=== PATIENT | female | born 1945 | race Caucasian/White ===

== ENCOUNTER 2021-06-24 11:26 | Inpatient (IN) | payer MEDICARE, BC ==
[2021-06-24] MEDS ORDERED: Diltiazem 125 MG/25 ML ONE (11:41)
[2021-06-24 13:47] LABS: #Basophils 0.1 thou/uL (0.0-0.2); #Eosinphils 0.1 thou/uL (0.0-0.7); #Lymphocytes 1.9 thou/uL (1.20-3.40); #Monocytes 1.1 thou/uL (0.11-0.59); #Neutrophils 7.3 thou/uL (1.40-6.50); %Basophils 0.5 % (0.0-1.0); %Lymphocytes 17.8 % (21.0-51.0); %Monocytes 10.7 % (0.0-10.0); %Neutrophils 70.1 % (42.0-75.0); Hemoglobin 12.8 g/dL (12.0-16.0); Mean Corpuscular HGB CONC 33.5 g/dL (32.0-36.0); Mean Corpuscular Hemoglobin 34.5 pg (27.0-31.0); Mean Platelet Volume 8.5 fL (7.4-10.4); Platelet Count 314 thou/uL (130-400); RBC Distribution Width 12.2 % (11.5-14.5); White Blood Cell (WBC) Count 10.4 thou/uL (4.8-10.8)
[2021-06-24 14:00] LABS: Prothrombin Time 46.8 sec (12.0-14.7)
[2021-06-24 14:02] LABS: PTT 72.2 sec (22.9-36.1)
[2021-06-24 14:20] LABS: Albumin 3.3 g/dL (3.4-4.8)
[2021-06-24 14:21] LABS: Chloride 108 mmol/L (98-107); Potassium 4.1 mmol/L (3.5-5.1); Sodium 141 mmol/L (136-145)
[2021-06-24 14:22] LABS: Calcium 8.5 mg/dL (7.8-10.44); Glucose 105 mg/dL (83-110)
[2021-06-24 14:23] LABS: Globulin 2.7 g/dL (2.4-3.5)
[2021-06-24 14:24] LABS: Anion Gap 16 mmol/L (10-20); Bilirubin, Total 0.6 mg/dL (0.2-1.2); Carbon Dioxide 21 mmol/L (23-31)
[2021-06-24 14:25] LABS: Alkaline Phosphatase 49 U/L (40-110)
[2021-06-24 14:26] LABS: Calc. Creatinine Clearance 0 mL/min (70-130)
[2021-06-24 14:27] LABS: BUN (Urea Nitrogen) 16 mg/dL (9.8-20.1)
[2021-06-24 14:28] LABS: ALT (SGPT) 19 U/L (8-55); AST (SGOT) 18 U/L (5-34); Magnesium 1.7 mg/dL (1.6-2.6)
[2021-06-24 14:29] LABS: Lipase 27 U/L (8-78)
[2021-06-24] MEDS ORDERED: Diltiazem 125 MG in Sodium Chloride 0.9% 100 ML IVPB SCH (16:15)
[2021-06-24] MEDS ORDERED: Acetaminophen 325 MG TAB PO PRN (16:25)
[2021-06-24] MEDS ORDERED: Ondansetron ODT 4 MG TAB PO PRN (16:25)
[2021-06-24] MEDS ORDERED: Magnesium 2 GM/50 ML 2 GM in Premix Bag 1 BAG IVPB SCH (17:15)
[2021-06-24 17:20] VITALS: BMI 25.3
[2021-06-24 18:58] LABS: Troponin I Less than 0.010 ng/mL (< 0.028)
[2021-06-24 21:59] LABS: Troponin I 0.018 ng/mL (< 0.028)
[2021-06-25] MEDS ORDERED: Diltiazem 125 MG in Sodium Chloride 0.9% 100 ML IVPB SCH ×2 (01:00→10:15)
[2021-06-25 04:31] LABS: #Eosinphils 0.1 thou/uL (0.0-0.7); #Lymphocytes 1.5 thou/uL (1.20-3.40); #Monocytes 1.3 thou/uL (0.11-0.59); #Neutrophils 7.3 thou/uL (1.40-6.50); %Basophils 0.4 % (0.0-1.0); %Eosinophils 1.3 % (0.0-10.0); %Lymphocytes 14.5 % (21.0-51.0); %Monocytes 12.7 % (0.0-10.0); %Neutrophils 71.1 % (42.0-75.0); Hemoglobin 13.3 g/dL (12.0-16.0); Mean Corpuscular HGB CONC 33.2 g/dL (32.0-36.0); Mean Corpuscular Hemoglobin 34.1 pg (27.0-31.0); Mean Platelet Volume 8.9 fL (7.4-10.4); Platelet Count 344 thou/uL (130-400); RBC Distribution Width 12.2 % (11.5-14.5); White Blood Cell (WBC) Count 10.2 thou/uL (4.8-10.8)
[2021-06-25 04:40] LABS: Prothrombin Time 39.3 sec (12.0-14.7)
[2021-06-25 04:41] LABS: PTT 83.1 sec (22.9-36.1)
[2021-06-25 04:51] LABS: Anion Gap 12 mmol/L (10-20); BUN (Urea Nitrogen) 14 mg/dL (9.8-20.1); Calc. Creatinine Clearance 80 mL/min (70-130); Calcium 8.9 mg/dL (7.8-10.44); Carbon Dioxide 25 mmol/L (23-31); Chloride 108 mmol/L (98-107); Glucose 152 mg/dL (83-110); Sodium 141 mmol/L (136-145)
[2021-06-25] MEDS ORDERED: Dextrose 50% Abboject 50 ML SYRINGE SLOW IVP PRN (10:05)
[2021-06-25] MEDS ORDERED: Dextrose 5% in Water 1,000 ML IV PRN (10:05)
[2021-06-25] MEDS ORDERED: Digoxin 0.5 MG/2 ML AMP SLOW IVP SCH (10:15)
[2021-06-25] MEDS ORDERED: Acetaminophen 325 MG TAB PO PRN (11:54)
[2021-06-25 19:19] LABS: SARS-CoV-2 PCR by NAA Not Detected (NotDetected)
[2021-06-25] MEDS: Amiodarone 450 MG in Dextrose 5% in Water 250 ML IVPB SCH (20:28)
[2021-06-25] MEDS: Metoprolol Tartrate 25 MG TAB PO SCH (20:29)
[2021-06-26] MEDS: Amiodarone 450 MG in Dextrose 5% in Water 250 ML IVPB SCH ×2 (05:24→19:57)
[2021-06-26 05:29] LABS: INR-International Normal Ratio 2.8; Prothrombin Time 29.5 sec (12.0-14.7)
[2021-06-26 05:37] LABS: Anion Gap 13 mmol/L (10-20); BUN (Urea Nitrogen) 12 mg/dL (9.8-20.1); Calc. Creatinine Clearance 81 mL/min (70-130); Calcium 8.9 mg/dL (7.8-10.44); Carbon Dioxide 21 mmol/L (23-31); Chloride 105 mmol/L (98-107); Glucose 237 mg/dL (83-110); Magnesium 1.5 mg/dL (1.6-2.6); Potassium 3.8 mmol/L (3.5-5.1); Sodium 135 mmol/L (136-145)
[2021-06-26 05:51] LABS: #Eosinphils 0.1 thou/uL (0.0-0.7); #Lymphocytes 1.6 thou/uL (1.20-3.40); #Monocytes 1.6 thou/uL (0.11-0.59); #Neutrophils 8.9 thou/uL (1.40-6.50); %Basophils 0.4 % (0.0-1.0); %Eosinophils 0.6 % (0.0-10.0); %Monocytes 12.8 % (0.0-10.0); %Neutrophils 73.1 % (42.0-75.0); Hemoglobin 12.8 g/dL (12.0-16.0); Mean Corpuscular HGB CONC 32.9 g/dL (32.0-36.0); Mean Corpuscular Hemoglobin 33.3 pg (27.0-31.0); Mean Platelet Volume 9.1 fL (7.4-10.4); Platelet Count 355 thou/uL (130-400); RBC Distribution Width 12.1 % (11.5-14.5); Red Blood Cell (RBC) Count 3.86 mill/uL (4.20-5.40); White Blood Cell (WBC) Count 12.2 thou/uL (4.8-10.8)
[2021-06-26] MEDS: HumaLOG 300 UNITS/3 ML VIAL SC PRN ×3 (06:05→17:01)
[2021-06-26] MEDS: HYDROcodone/Acetaminophen 5/325 mg Tablet PO PRN ×2 (08:49→19:57)
[2021-06-26] MEDS ORDERED: HYDROcodone/Acetaminophen 5/325 mg Tablet PO SCH (09:45)
[2021-06-26] MEDS ORDERED: Magnesium Sulfate 4 GM in Sodium Chloride 0.9% 250 ML 250 ML IVPB SCH (09:45)
[2021-06-26] MEDS: glipiZIDE 5 MG TAB PO SCH (10:00)
[2021-06-26] MEDS: Digoxin 0.125 MG TAB PO SCH (10:01)
[2021-06-26] MEDS: Lisinopril 10 MG TAB PO SCH (10:01)
[2021-06-26] MEDS: Atorvastatin Calcium 10 MG TAB PO SCH (10:01)
[2021-06-26] MEDS: Metoprolol Tartrate 25 MG TAB PO SCH ×2 (10:02→19:57)
[2021-06-26] MEDS: Lidocaine 5% Patch TD SCH (10:14)
[2021-06-26] MEDS: Clindamycin/D5W 900 MG in Premix Bag 1 BAG IVPB SCH ×2 (13:53→21:47)
[2021-06-26] MEDS ORDERED: Warfarin Sodium 2 MG TAB PO SCH (17:00)
[2021-06-26] MEDS: Transdermal Patch Removal TOP SCH (19:58)
[2021-06-27 04:39] LABS: #Eosinphils 0.3 thou/uL (0.0-0.7); #Lymphocytes 1.3 thou/uL (1.20-3.40); #Monocytes 1.3 thou/uL (0.11-0.59); #Neutrophils 7.3 thou/uL (1.40-6.50); %Basophils 0.1 % (0.0-1.0); %Eosinophils 3.3 % (0.0-10.0); %Lymphocytes 12.9 % (21.0-51.0); %Neutrophils 70.7 % (42.0-75.0); Hemoglobin 13.1 g/dL (12.0-16.0); Mean Corpuscular HGB CONC 32.6 g/dL (32.0-36.0); Mean Corpuscular Hemoglobin 33.3 pg (27.0-31.0); Mean Platelet Volume 8.6 fL (7.4-10.4); Platelet Count 325 thou/uL (130-400); RBC Distribution Width 12.1 % (11.5-14.5); Red Blood Cell (RBC) Count 3.94 mill/uL (4.20-5.40); White Blood Cell (WBC) Count 10.3 thou/uL (4.8-10.8)
[2021-06-27 04:48] LABS: INR-International Normal Ratio 2.8; Prothrombin Time 29.4 sec (12.0-14.7)
[2021-06-27 04:58] LABS: Anion Gap 13 mmol/L (10-20); BUN (Urea Nitrogen) 15 mg/dL (9.8-20.1); Calc. Creatinine Clearance 83 mL/min (70-130); Calcium 8.5 mg/dL (7.8-10.44); Carbon Dioxide 24 mmol/L (23-31); Chloride 103 mmol/L (98-107); Glucose 199 mg/dL (83-110); Magnesium 1.8 mg/dL (1.6-2.6); Potassium 3.9 mmol/L (3.5-5.1); Sodium 136 mmol/L (136-145)
[2021-06-27] MEDS: Clindamycin/D5W 900 MG in Premix Bag 1 BAG IVPB SCH ×3 (05:32→22:19)
[2021-06-27] MEDS: glipiZIDE 5 MG TAB PO SCH (08:47)
[2021-06-27] MEDS: Atorvastatin Calcium 10 MG TAB PO SCH (08:48)
[2021-06-27] MEDS: Digoxin 0.125 MG TAB PO SCH (08:48)
[2021-06-27] MEDS: Lisinopril 10 MG TAB PO SCH (08:48)
[2021-06-27] MEDS: HYDROcodone/Acetaminophen 5/325 mg Tablet PO PRN ×2 (08:48→20:32)
[2021-06-27] MEDS: Metoprolol Tartrate 25 MG TAB PO SCH ×2 (08:48→20:32)
[2021-06-27] MEDS: Lidocaine 5% Patch TD SCH (08:49)
[2021-06-27] MEDS ORDERED: PROPOFOL 0 ML ONE (10:56)
[2021-06-27] MEDS ORDERED: PROPOFOL 20 ML ONE (11:27)
[2021-06-27] MEDS ORDERED: Warfarin Sodium 2 MG TAB PO SCH (17:00)
[2021-06-27] MEDS: Dronedarone HCl 400 MG TAB PO SCH (20:32)
[2021-06-27] MEDS: Transdermal Patch Removal TOP SCH (20:33)
[2021-06-28 04:42] LABS: #Basophils 0.1 thou/uL (0.0-0.2); #Eosinphils 0.4 thou/uL (0.0-0.7); #Lymphocytes 1.6 thou/uL (1.20-3.40); #Monocytes 1.3 thou/uL (0.11-0.59); #Neutrophils 6.1 thou/uL (1.40-6.50); %Basophils 0.7 % (0.0-1.0); %Eosinophils 3.9 % (0.0-10.0); %Lymphocytes 16.6 % (21.0-51.0); %Monocytes 13.3 % (0.0-10.0); %Neutrophils 65.5 % (42.0-75.0); Hemoglobin 12.5 g/dL (12.0-16.0); Mean Corpuscular HGB CONC 33.8 g/dL (32.0-36.0); Mean Corpuscular Hemoglobin 34.6 pg (27.0-31.0); Mean Platelet Volume 8.7 fL (7.4-10.4); Platelet Count 335 thou/uL (130-400); Red Blood Cell (RBC) Count 3.61 mill/uL (4.20-5.40); White Blood Cell (WBC) Count 9.4 thou/uL (4.8-10.8)
[2021-06-28 04:52] LABS: INR-International Normal Ratio 2.8; Prothrombin Time 29.6 sec (12.0-14.7)
[2021-06-28 05:08] LABS: Anion Gap 11 mmol/L (10-20); BUN (Urea Nitrogen) 13 mg/dL (9.8-20.1); Calc. Creatinine Clearance 72 mL/min (70-130); Calcium 8.4 mg/dL (7.8-10.44); Carbon Dioxide 26 mmol/L (23-31); Chloride 104 mmol/L (98-107); Glucose 140 mg/dL (83-110); Potassium 4.3 mmol/L (3.5-5.1); Sodium 137 mmol/L (136-145)
[2021-06-28] MEDS: HYDROcodone/Acetaminophen 5/325 mg Tablet PO PRN (05:28)
[2021-06-28] MEDS: Clindamycin/D5W 900 MG in Premix Bag 1 BAG IVPB SCH ×3 (05:29→21:51)
[2021-06-28] MEDS: Dronedarone HCl 400 MG TAB PO SCH ×2 (09:19→21:50)
[2021-06-28] MEDS: Lisinopril 10 MG TAB PO SCH (09:19)
[2021-06-28] MEDS: glipiZIDE 5 MG TAB PO SCH (09:20)
[2021-06-28] MEDS: Atorvastatin Calcium 10 MG TAB PO SCH (09:20)
[2021-06-28] MEDS: Metoprolol Tartrate 25 MG TAB PO SCH ×2 (09:21→21:50)
[2021-06-28] MEDS: Lidocaine 5% Patch TD SCH (09:21)
[2021-06-28] MEDS ORDERED: Warfarin Sodium 2 MG TAB PO SCH (17:00)
[2021-06-28] MEDS: HumaLOG 300 UNITS/3 ML VIAL SC PRN (17:25)
[2021-06-28] MEDS: Transdermal Patch Removal TOP SCH (22:44)
[2021-06-29] MEDS: HYDROcodone/Acetaminophen 5/325 mg Tablet PO PRN (03:59)
[2021-06-29] MEDS: Clindamycin/D5W 900 MG in Premix Bag 1 BAG IVPB SCH ×3 (05:23→21:51)
[2021-06-29 05:34] LABS: INR-International Normal Ratio 2.7; Prothrombin Time 28.7 sec (12.0-14.7)
[2021-06-29] MEDS: Atorvastatin Calcium 10 MG TAB PO SCH (08:53)
[2021-06-29] MEDS: glipiZIDE 5 MG TAB PO SCH (08:53)
[2021-06-29] MEDS: Dronedarone HCl 400 MG TAB PO SCH ×2 (08:55→20:14)
[2021-06-29] MEDS: Lidocaine 5% Patch TD SCH (08:55)
[2021-06-29] MEDS: Lisinopril 10 MG TAB PO SCH (08:55)
[2021-06-29] MEDS: Metoprolol Tartrate 25 MG TAB PO SCH ×2 (08:55→20:14)
[2021-06-29] MEDS: HumaLOG 300 UNITS/3 ML VIAL SC PRN ×2 (11:48→21:51)
[2021-06-29] MEDS ORDERED: Warfarin Sodium 5 MG TAB PO SCH (17:00)
[2021-06-29] MEDS: Transdermal Patch Removal TOP SCH (21:52)
[2021-06-30] MEDS: Clindamycin/D5W 900 MG in Premix Bag 1 BAG IVPB SCH (05:12)
[2021-06-30] MEDS: HumaLOG 300 UNITS/3 ML VIAL SC PRN (06:16)
[2021-06-30 08:34] LABS: INR-International Normal Ratio 2.6
[2021-06-30] MEDS: Dronedarone HCl 400 MG TAB PO SCH (08:42)
[2021-06-30] MEDS: Atorvastatin Calcium 10 MG TAB PO SCH (08:42)
[2021-06-30] MEDS: Lisinopril 10 MG TAB PO SCH (08:42)
[2021-06-30] MEDS: Metoprolol Tartrate 25 MG TAB PO SCH (08:43)
[2021-06-30] MEDS: glipiZIDE 5 MG TAB PO SCH (08:43)
[2021-06-30] MEDS: Lidocaine 5% Patch TD SCH (08:48)
[2021-06-30] MEDS ORDERED: Polyethylene Glycol 3350 17 GM Packet PO SCH (09:00)
[2021-06-30 11:40] VITALS: BP 115/57; TEMP 98.1
== END 2021-06-30 11:30 | disposition home health service (06) | DRG 309 ==
LOC: ERS 11:26 → 2NO 15:07
PROVIDERS: ADMIT Family Medicine; ATTEND Family Medicine
PROC: 5A2204Z Restoration of Cardiac Rhythm, Single (ICD-10-PCS; principal; 2021-06-27)
DX: I48.0 Paroxysmal atrial fibrillation (principal); L03.114 Cellulitis of left upper limb; T80.1XXA Vascular complications following infusion, transfusion and therapeutic injection, initial encounter; I10 Essential (primary) hypertension; E78.5 Hyperlipidemia, unspecified; M19.90 Unspecified osteoarthritis, unspecified site; R79.1 Abnormal coagulation profile; E11.621 Type 2 diabetes mellitus with foot ulcer; L97.529 Non-pressure chronic ulcer of other part of left foot with unspecified severity; I48.92 Unspecified atrial flutter; Z20.822 Contact with and (suspected) exposure to COVID-19; I80.8 Phlebitis and thrombophlebitis of other sites; Z90.49 Acquired absence of other specified parts of digestive tract; Z95.2 Presence of prosthetic heart valve; Z86.73 Personal history of transient ischemic attack (TIA), and cerebral infarction without residual deficits; Z98.890 Other specified postprocedural states; Z88.1 Allergy status to other antibiotic agents; Z91.040 Latex allergy status
CPT/HCPCS: 36415; 36416; 71045; 80048; 80053; 83690; 83735; 83880; 84443; 84484; 85025; 85610; 85730; 92960; 93005; 93010; 96365; 96366; 96376; J0282; J1160; J1815; J2704; J3475; J3490; J7050; J7070; U0003; U0005

== ENCOUNTER 2021-08-05 15:02 | Outpatient (CLI) | payer MEDICARE, BC ==
[2021-08-05 17:20] LABS: INR-International Normal Ratio 1.8; PTT 32.5 sec (22.0-33.0); Prothrombin Time 19.2 sec (9.5-12.1)
[2021-08-05 17:23] LABS: Anion Gap 14 mmol/L (10-20); BUN (Urea Nitrogen) 16 mg/dL (9.8-20.1); Calc. Creatinine Clearance 0 mL/min (70-130); Carbon Dioxide 23 mmol/L (23-31); Chloride 109 mmol/L (98-107); Glucose 74 mg/dL (83-110); Potassium 4.2 mmol/L (3.5-5.1); Sodium 142 mmol/L (136-145)
[2021-08-06 00:49] LABS: SARS-CoV-2 PCR by NAA Not Detected (NotDetected)
== END 2021-08-05 15:03 | disposition home or self-care (01) ==
LOC: LABBT 15:02
PROVIDERS: ATTEND Internal Medicine Cardiovascular Disease
DX: Z01.812 Encounter for preprocedural laboratory examination (principal); Z20.822 Contact with and (suspected) exposure to COVID-19
CPT/HCPCS: 80048; 85610; 85730; U0003; U0005

== ENCOUNTER → 2021-08-09 | Day surgery (SDC) | payer MEDICARE, BC ==
[2021-08-08 15:12] VITALS: BMI 24.3
== END ==
LOC: CCL 12:20
PROVIDERS: ATTEND Internal Medicine Cardiovascular Disease
DX: I48.91 Unspecified atrial fibrillation (principal); Z53.8 Procedure and treatment not carried out for other reasons; Z79.01 Long term (current) use of anticoagulants; Z79.82 Long term (current) use of aspirin; Z79.84 Long term (current) use of oral hypoglycemic drugs; Z79.899 Other long term (current) drug therapy; Z91.018 Allergy to other foods; Z91.040 Latex allergy status
CPT/HCPCS: 93005; 93010

== ENCOUNTER 2022-04-18 13:38 | Outpatient (CLI) | payer MEDICARE, BC | END 2022-04-18 13:39 | disposition home or self-care (01) | LOC: BICRAD 13:38 | PROVIDERS: ATTEND Neurological Surgery | DX: M54.16 Radiculopathy, lumbar region (principal); M41.86 Other forms of scoliosis, lumbar region; Z98.890 Other specified postprocedural states | CPT/HCPCS: 72110 ==

== ENCOUNTER 2023-01-31 16:17 | Inpatient (IN) | payer MEDICARE, BC ==
[2023-01-31] MEDS ORDERED: Morphine 2 MG/ML VIAL ONE (17:18)
[2023-01-31 20:50] LABS: #Basophils 0.1 thou/uL (0.0-0.2); #Lymphocytes 1.7 thou/uL (1.20-3.40); #Monocytes 1.3 thou/uL (0.11-0.59); #Neutrophils 9.3 thou/uL (1.40-6.50); %Basophils 0.5 % (0.0-1.0); %Eosinophils 0.2 % (0.0-10.0); %Lymphocytes 13.6 % (21.0-51.0); %Monocytes 10.2 % (0.0-10.0); %Neutrophils 75.4 % (42.0-75.0); Hemoglobin 11.2 g/dL (12.0-16.0); Mean Corpuscular HGB CONC 33.4 g/dL (32.0-36.0); Mean Corpuscular Hemoglobin 34.7 pg (27.0-31.0); Mean Platelet Volume 8.7 fL (7.4-10.4); Platelet Count 256 10x3/uL (130-400); RBC Distribution Width 13.7 % (11.5-14.5); Red Blood Cell (RBC) Count 3.24 mill/uL (4.20-5.40); White Blood Cell (WBC) Count 12.3 10x3/uL (4.8-10.8)
[2023-01-31] MEDS ORDERED: Acetaminophen 325 MG TAB PO PRN (23:38)
[2023-01-31] MEDS ORDERED: Ondansetron ODT 4 MG TAB PO PRN (23:38)
[2023-01-31] MEDS ORDERED: Ondansetron PF 4 MG/2 ML Vial IVP PRN (23:38)
[2023-01-31] MEDS ORDERED: Acetaminophen 650 MG Suppository PR PRN (23:38)
[2023-01-31] MEDS ORDERED: Dextrose 5% in Water 1,000 ML IV PRN (23:40)
[2023-01-31] MEDS ORDERED: Dextrose 50% Abboject 50 ML SYRINGE SLOW IVP PRN (23:40)
[2023-02-01] MEDS ORDERED: Morphine 4 MG/ML VIAL ONE ×2 (03:21→09:53)
[2023-02-01] MEDS ORDERED: Ondansetron PF 4 MG/2 ML Vial ONE (03:21)
[2023-02-01] MEDS: Morphine 4 MG/ML VIAL SLOW IVP PRN ×3 (03:26→17:58)
[2023-02-01 05:09] LABS: #Eosinphils 0.1 thou/uL (0.0-0.7); #Lymphocytes 1.8 thou/uL (1.20-3.40); #Monocytes 1.6 thou/uL (0.11-0.59); #Neutrophils 9.3 thou/uL (1.40-6.50); %Eosinophils 0.5 % (0.0-10.0); %Lymphocytes 13.8 % (21.0-51.0); %Monocytes 12.3 % (0.0-10.0); %Neutrophils 73.4 % (42.0-75.0); Hemoglobin 10.9 g/dL (12.0-16.0); Mean Corpuscular HGB CONC 31.6 g/dL (32.0-36.0); Mean Corpuscular Hemoglobin 33.2 pg (27.0-31.0); Mean Platelet Volume 9.1 fL (7.4-10.4); Platelet Count 267 10x3/uL (130-400); RBC Distribution Width 13.7 % (11.5-14.5); Red Blood Cell (RBC) Count 3.27 mill/uL (4.20-5.40); White Blood Cell (WBC) Count 12.7 10x3/uL (4.8-10.8)
[2023-02-01 05:26] LABS: Anion Gap 12 mmol/L (10-20); BUN (Urea Nitrogen) 14 mg/dL (9.8-20.1); Calc. Creatinine Clearance 86 mL/min (70-130); Calcium 9.2 mg/dL (7.8-10.44); Carbon Dioxide 24 mmol/L (23-31); Chloride 106 mmol/L (98-107); Estimated GFR 91; Glucose 134 mg/dL (83-110); Potassium 3.8 mmol/L (3.5-5.1); Sodium 138 mmol/L (136-145)
[2023-02-01] MEDS ORDERED: Iopamidol-370 76% 500 ML MDV (1 ML CHARGE) ONE (09:26)
[2023-02-01] MEDS ORDERED: Lactated Ringer's 1,000 ML IV SCH (10:30)
[2023-02-01 13:05] LABS: Hemoglobin 10.9 g/dL (12.0-16.0); Mean Corpuscular HGB CONC 33.4 g/dL (32.0-36.0); Mean Corpuscular Hemoglobin 34.9 pg (27.0-31.0); Platelet Count 249 10x3/uL (130-400); RBC Distribution Width 13.7 % (11.5-14.5); Red Blood Cell (RBC) Count 3.12 mill/uL (4.20-5.40); White Blood Cell (WBC) Count 13.9 10x3/uL (4.8-10.8)
[2023-02-01 13:22] LABS: INR-International Normal Ratio 1.1; Prothrombin Time 15.1 sec (12.0-14.7)
[2023-02-01 18:16] LABS: Bacteria/HPF None Seen HPF (None Seen); Bilirubin Negative (Negative); Blood, Urine Negative (Negative); CAUTI Indications for Culture Pelvic or flank pain; Clarity Clear (Clear); Glucose, Urine (Dipstick) Normal (Negative); Ketone, Urine Negative (Negative); Leukocyte Negative Leu/uL (Negative); Nitrite Negative (Negative); Protein, Urine (Dipstick) 30 mg/dL (Neg-Trace); RBC/HPF None Seen HPF (0-3); Squamous Epithelial 0-3 HPF (0-3); WBC/HPF 0-3 HPF (0-3)
[2023-02-01 18:20] LABS: Specific Gravity, Urine Greater than 1.060 (1.002-1.036)
[2023-02-01 18:22] LABS: Urine Culture Reflex No No
[2023-02-01] MEDS ORDERED: Morphine 4 MG/ML VIAL SLOW IVP PRN (18:23)
[2023-02-01] MEDS ORDERED: Dronedarone HCl 400 MG TAB PO SCH (18:30)
[2023-02-01] MEDS: Gabapentin 100 MG CAP PO SCH (19:40)
[2023-02-02 05:50] LABS: Mean Corpuscular HGB CONC 33.7 g/dL (32.0-36.0); Mean Corpuscular Hemoglobin 35.1 pg (27.0-31.0); Mean Platelet Volume 9.9 fL (7.4-10.4); Platelet Count 221 10x3/uL (130-400); RBC Distribution Width 13.7 % (11.5-14.5); Red Blood Cell (RBC) Count 2.85 mill/uL (4.20-5.40); White Blood Cell (WBC) Count 11.1 10x3/uL (4.8-10.8)
[2023-02-02 05:55] LABS: INR-International Normal Ratio 1.2; PTT 36.3 sec (22.9-36.1); Prothrombin Time 15.2 sec (12.0-14.7)
[2023-02-02 06:02] LABS: ALT (SGPT) 20 U/L (8-55); AST (SGOT) 36 U/L (5-34); Albumin 2.9 g/dL (3.4-4.8); Alkaline Phosphatase 39 U/L (40-110); Anion Gap 13 mmol/L (10-20); BUN (Urea Nitrogen) 14 mg/dL (9.8-20.1); Bilirubin, Direct 0.6 mg/dL (0.1-0.3); Bilirubin, Total 1.2 mg/dL (0.2-1.2); Calc. Creatinine Clearance 0 mL/min (70-130); Calcium 8.7 mg/dL (7.8-10.44); Carbon Dioxide 24 mmol/L (23-31); Chloride 107 mmol/L (98-107); Estimated GFR 92; Glucose 110 mg/dL (83-110); Magnesium 1.6 mg/dL (1.6-2.6); Potassium 3.7 mmol/L (3.5-5.1); Protein, Total 5.9 g/dL (5.8-8.1); Sodium 140 mmol/L (136-145)
[2023-02-02 06:19] LABS: Hemoglobin A1c 4.8 % (4.0-6.0)
[2023-02-02 06:38] LABS: Band 4 % (5-11); Lymphocytes 17 % (21-51); MDiff Complete? YES; Monocytes 10 % (0-10); Neutrophil 69 % (42-75)
[2023-02-02] MEDS ORDERED: Lactated Ringer's 1,000 ML IV SCH (08:00)
[2023-02-02] MEDS: Lidocaine 4% Patch TD SCH (08:24)
[2023-02-02] MEDS: Gabapentin 100 MG CAP PO SCH (08:28)
[2023-02-02] MEDS: Ezetimibe 10 MG TAB PO SCH (08:29)
[2023-02-02] MEDS: Dronedarone HCl 400 MG TAB PO SCH ×2 (08:29→17:58)
[2023-02-02] MEDS ORDERED: Heparin 25,000 units/D5W 500 ML IVPB SCH (08:45)
[2023-02-02] MEDS ORDERED: Heparin 10,000 UNITS/ 10 ML VIAL SLOW IVP SCH (08:45)
[2023-02-02] MEDS ORDERED: Lisinopril 10 MG TAB PO SCH (09:00)
[2023-02-02] MEDS ORDERED: Furosemide 40 MG TAB PO SCH (09:00)
[2023-02-02 09:29] LABS: Hemoglobin 9.9 g/dL (12.0-16.0); Platelet Count 222 10x3/uL (130-400)
[2023-02-02] MEDS: Metoprolol Tartrate 5 MG/5 ML VIAL IVP SCH (10:06)
[2023-02-02] MEDS: Aspirin 81 mg Enteric Coated Tablet PO SCH (10:06)
[2023-02-02] MEDS: Metoprolol Tartrate 25 MG TAB PO SCH ×2 (10:07→21:11)
[2023-02-02] MEDS ORDERED: Gabapentin 100 MG CAP PO SCH (12:07)
[2023-02-02] MEDS ORDERED: Gabapentin 300 MG CAP PO SCH (12:15)
[2023-02-02] MEDS ORDERED: Ketorolac Tromethamine 30 MG/ML VIAL IVP PRN (13:25)
[2023-02-02] MEDS ORDERED: HYDROmorphone 2 MG TAB PO PRN (13:26)
[2023-02-02] MEDS ORDERED: Sodium Chloride 0.9% 500 ML IV SCH ×2 (13:30→17:15)
[2023-02-02 14:53] LABS: Hemoglobin 10.4 g/dL (12.0-16.0); Mean Corpuscular HGB CONC 34.3 g/dL (32.0-36.0); Mean Corpuscular Hemoglobin 35.7 pg (27.0-31.0); Mean Platelet Volume 9.4 fL (7.4-10.4); Platelet Count 228 10x3/uL (130-400); RBC Distribution Width 13.8 % (11.5-14.5); Red Blood Cell (RBC) Count 2.91 mill/uL (4.20-5.40); White Blood Cell (WBC) Count 10.8 10x3/uL (4.8-10.8)
[2023-02-02] MEDS: Acetaminophen 325 MG TAB PO SCH ×2 (15:10→17:57)
[2023-02-02] MEDS: Gabapentin 300 MG CAP PO SCH ×2 (15:11→21:11)
[2023-02-02] MEDS: Sodium Chloride 0.9% 1,000 ML IV SCH (15:13)
[2023-02-02 16:26] LABS: PTT 166.4 sec (22.9-36.1)
[2023-02-02] MEDS ORDERED: Atorvastatin Calcium 40 MG TAB PO SCH (21:00)
[2023-02-02] MEDS: Transdermal Patch Removal TOP SCH (21:12)
[2023-02-03] MEDS: Acetaminophen 325 MG TAB PO SCH ×5 (00:17→23:28)
[2023-02-03] MEDS: Sodium Chloride 0.9% 1,000 ML IV SCH ×4 (03:26→23:29)
[2023-02-03 04:59] LABS: Hemoglobin 9.3 g/dL (12.0-16.0); Mean Corpuscular HGB CONC 33.9 g/dL (32.0-36.0); Mean Corpuscular Hemoglobin 35.7 pg (27.0-31.0); Platelet Count 224 10x3/uL (130-400); RBC Distribution Width 13.9 % (11.5-14.5); Red Blood Cell (RBC) Count 2.59 mill/uL (4.20-5.40); White Blood Cell (WBC) Count 8.8 10x3/uL (4.8-10.8)
[2023-02-03 05:01] LABS: INR-International Normal Ratio 1.1; PTT 37.4 sec (22.9-36.1)
[2023-02-03 05:19] LABS: Anion Gap 10 mmol/L (10-20); BUN (Urea Nitrogen) 15 mg/dL (9.8-20.1); CK (CPK) 246 U/L (29-168); Calc. Creatinine Clearance 79 mL/min (70-130); Carbon Dioxide 25 mmol/L (23-31); Chloride 109 mmol/L (98-107); Estimated GFR 90; Glucose 135 mg/dL (83-110); Magnesium 1.6 mg/dL (1.6-2.6); Potassium 3.7 mmol/L (3.5-5.1); Sodium 140 mmol/L (136-145)
[2023-02-03 05:36] LABS: Crenated RBC MODERATE= 6-15 cells (100X) (None Seen); Eosinophils 4 % (0-10); Lymphocytes 12 % (21-51); MDiff Complete? YES; Macrocytosis SLIGHT = 6-15 cells (100X) (0-5/hpf); Monocytes 10 % (0-10); Neutrophil 74 % (42-75); Platelet Morphology Comment Appears Adequate; Polychromasia SLIGHT = 2-3 cells (100X) (0-2/hpf); Schistocytes SLIGHT = 2-5 cells (100X) (0-1/hpf)
[2023-02-03] MEDS ORDERED: Electrolyte Replacement Protocol 1 EACH FS SCH (08:00)
[2023-02-03] MEDS ORDERED: Potassium Chloride 20 MEQ TAB PO SCH (08:00)
[2023-02-03] MEDS ORDERED: Magnesium Sulfate In Water 4 GM in Premix Bag 1 BAG IVPB SCH (08:00)
[2023-02-03] MEDS ORDERED: Atorvastatin Calcium 10 MG TAB PO SCH (09:00)
[2023-02-03] MEDS: Lidocaine 4% Patch TD SCH (09:29)
[2023-02-03] MEDS: Aspirin 81 mg Enteric Coated Tablet PO SCH (09:30)
[2023-02-03] MEDS: Dronedarone HCl 400 MG TAB PO SCH ×2 (09:30→16:21)
[2023-02-03] MEDS: Gabapentin 300 MG CAP PO SCH ×3 (09:30→21:19)
[2023-02-03] MEDS: Atorvastatin Calcium 10 MG TAB PO SCH (09:30)
[2023-02-03] MEDS: Ezetimibe 10 MG TAB PO SCH (09:31)
[2023-02-03 14:32] LABS: Hemoglobin 9.2 g/dL (12.0-16.0); Mean Corpuscular HGB CONC 33.9 g/dL (32.0-36.0); Mean Corpuscular Hemoglobin 35.7 pg (27.0-31.0); Mean Platelet Volume 8.9 fL (7.4-10.4); Platelet Count 229 10x3/uL (130-400); Red Blood Cell (RBC) Count 2.58 mill/uL (4.20-5.40)
[2023-02-03] MEDS: Metoprolol Tartrate 25 MG TAB PO SCH (21:19)
[2023-02-03] MEDS: Transdermal Patch Removal TOP SCH (21:21)
[2023-02-04] MEDS: Sodium Chloride 0.9% 1,000 ML IV SCH ×3 (04:50→21:11)
[2023-02-04 05:09] LABS: #Eosinphils 0.5 thou/uL (0.0-0.7); #Lymphocytes 1.5 thou/uL (1.20-3.40); #Monocytes 1.1 thou/uL (0.11-0.59); %Basophils 0.4 % (0.0-1.0); %Eosinophils 5.1 % (0.0-10.0); %Lymphocytes 16.1 % (21.0-51.0); %Monocytes 12.1 % (0.0-10.0); %Neutrophils 66.3 % (42.0-75.0); Hemoglobin 9.6 g/dL (12.0-16.0); Mean Corpuscular HGB CONC 33.4 g/dL (32.0-36.0); Mean Platelet Volume 8.8 fL (7.4-10.4); Platelet Count 251 10x3/uL (130-400); RBC Distribution Width 14.1 % (11.5-14.5); Red Blood Cell (RBC) Count 2.76 mill/uL (4.20-5.40)
[2023-02-04 05:14] LABS: INR-International Normal Ratio 1.1; Prothrombin Time 14.1 sec (12.0-14.7)
[2023-02-04 05:28] LABS: Anion Gap 9 mmol/L (10-20); BUN (Urea Nitrogen) 15 mg/dL (9.8-20.1); Calc. Creatinine Clearance 74 mL/min (70-130); Calcium 7.9 mg/dL (7.8-10.44); Carbon Dioxide 23 mmol/L (23-31); Chloride 112 mmol/L (98-107); Estimated GFR 88; Glucose 136 mg/dL (83-110); Magnesium 2.2 mg/dL (1.6-2.6); Potassium 4.9 mmol/L (3.5-5.1); Sodium 139 mmol/L (136-145)
[2023-02-04] MEDS: Acetaminophen 325 MG TAB PO SCH ×4 (05:50→23:10)
[2023-02-04] MEDS: Lidocaine 4% Patch TD SCH (09:12)
[2023-02-04] MEDS: Atorvastatin Calcium 10 MG TAB PO SCH (09:12)
[2023-02-04] MEDS: Dronedarone HCl 400 MG TAB PO SCH ×2 (09:12→17:22)
[2023-02-04] MEDS: Metoprolol Tartrate 25 MG TAB PO SCH ×2 (09:12→20:21)
[2023-02-04] MEDS: Ezetimibe 10 MG TAB PO SCH (09:12)
[2023-02-04] MEDS: Gabapentin 300 MG CAP PO SCH ×3 (09:13→20:20)
[2023-02-04] MEDS: Aspirin 81 mg Enteric Coated Tablet PO SCH (09:13)
[2023-02-04] MEDS ORDERED: Heparin 10,000 UNITS/ 10 ML VIAL SLOW IVP SCH (16:30)
[2023-02-04] MEDS ORDERED: Heparin 25,000 units/D5W 500 ML IV SCH (16:30)
[2023-02-04 18:54] LABS: Bacteria/HPF None Seen HPF (None Seen); Bilirubin Negative (Negative); Blood, Urine Negative (Negative); CAUTI Indications for Culture Dysuria,urgency,freq; Clarity Clear (Clear); Glucose, Urine (Dipstick) Normal (Negative); Ketone, Urine Negative (Negative); Leukocyte Negative Leu/uL (Negative); Nitrite Negative (Negative); Protein, Urine (Dipstick) Negative (Neg-Trace); RBC/HPF 0-3 HPF (0-3); Squamous Epithelial None Seen HPF (0-3); Urobilinogen Normal mg/dL (Less than 2); WBC/HPF 0-3 HPF (0-3); pH, Urine 5.5 (5.0-9.0)
[2023-02-04 19:01] LABS: Urine Culture Reflex No No
[2023-02-04] MEDS: Transdermal Patch Removal TOP SCH (20:23)
[2023-02-05 04:57] LABS: #Eosinphils 0.3 thou/uL (0.0-0.7); #Lymphocytes 1.6 thou/uL (1.20-3.40); #Monocytes 1.1 thou/uL (0.11-0.59); #Neutrophils 5.3 thou/uL (1.40-6.50); %Basophils 0.6 % (0.0-1.0); %Eosinophils 4.2 % (0.0-10.0); %Lymphocytes 18.9 % (21.0-51.0); %Neutrophils 63.3 % (42.0-75.0); Hemoglobin 9.2 g/dL (12.0-16.0); Mean Corpuscular HGB CONC 30.9 g/dL (32.0-36.0); Mean Corpuscular Hemoglobin 32.3 pg (27.0-31.0); Platelet Count 261 10x3/uL (130-400); RBC Distribution Width 14.4 % (11.5-14.5); Red Blood Cell (RBC) Count 2.85 mill/uL (4.20-5.40); White Blood Cell (WBC) Count 8.3 10x3/uL (4.8-10.8)
[2023-02-05 05:09] LABS: ALT (SGPT) 14 U/L (8-55); AST (SGOT) 21 U/L (5-34); Albumin 2.6 g/dL (3.4-4.8); Alkaline Phosphatase 34 U/L (40-110); Anion Gap 12 mmol/L (10-20); BUN (Urea Nitrogen) 12 mg/dL (9.8-20.1); Calc. Creatinine Clearance 86 mL/min (70-130); Calcium 8.1 mg/dL (7.8-10.44); Carbon Dioxide 21 mmol/L (23-31); Chloride 112 mmol/L (98-107); Estimated GFR 91; Globulin 2.8 g/dL (2.4-3.5); Glucose 126 mg/dL (83-110); Magnesium 1.8 mg/dL (1.6-2.6); Potassium 4.5 mmol/L (3.5-5.1); Protein, Total 5.4 g/dL (5.8-8.1); Sodium 140 mmol/L (136-145)
[2023-02-05 05:19] LABS: INR-International Normal Ratio 1.1; PTT 33.2 sec (22.9-36.1); Prothrombin Time 14.9 sec (12.0-14.7)
[2023-02-05] MEDS: Acetaminophen 325 MG TAB PO SCH ×3 (05:49→17:15)
[2023-02-05] MEDS: Sodium Chloride 0.9% 1,000 ML IV SCH ×2 (05:50→21:02)
[2023-02-05] MEDS ORDERED: Magnesium 2 GM/50 ML(in water) 2 GM in Premix Bag 1 BAG IVPB SCH (08:00)
[2023-02-05] MEDS: Lidocaine 4% Patch TD SCH (08:03)
[2023-02-05] MEDS: Gabapentin 300 MG CAP PO SCH ×3 (08:04→21:03)
[2023-02-05] MEDS: Ezetimibe 10 MG TAB PO SCH (08:04)
[2023-02-05] MEDS: Dronedarone HCl 400 MG TAB PO SCH ×2 (08:04→17:15)
[2023-02-05] MEDS: Aspirin 81 mg Enteric Coated Tablet PO SCH (08:04)
[2023-02-05] MEDS: Metoprolol Tartrate 25 MG TAB PO SCH ×2 (08:04→21:04)
[2023-02-05] MEDS ORDERED: Heparin 25,000 units/D5W 500 ML IV SCH (15:45)
[2023-02-05] MEDS ORDERED: Heparin 10,000 UNITS/ 10 ML VIAL SLOW IVP SCH (15:45)
[2023-02-05] MEDS: HumaLOG 300 UNITS/3 ML VIAL SC PRN (17:16)
[2023-02-05] MEDS: Heparin 25,000 units/D5W 500 ML IV SCH (17:19)
[2023-02-05] MEDS: Atorvastatin Calcium 40 MG TAB PO SCH (21:03)
[2023-02-06] MEDS: Acetaminophen 325 MG TAB PO SCH ×5 (00:17→23:41)
[2023-02-06] MEDS: Transdermal Patch Removal TOP SCH ×2 (00:19→20:30)
[2023-02-06 05:48] LABS: #Basophils 0.1 thou/uL (0.0-0.2); #Eosinphils 0.5 thou/uL (0.0-0.7); #Lymphocytes 2.4 thou/uL (1.20-3.40); #Monocytes 1.5 thou/uL (0.11-0.59); #Neutrophils 6.5 thou/uL (1.40-6.50); %Basophils 0.7 % (0.0-1.0); %Eosinophils 4.6 % (0.0-10.0); %Lymphocytes 21.7 % (21.0-51.0); %Monocytes 13.5 % (0.0-10.0); %Neutrophils 59.6 % (42.0-75.0); Mean Corpuscular HGB CONC 32.7 g/dL (32.0-36.0); Mean Corpuscular Hemoglobin 34.6 pg (27.0-31.0); Mean Platelet Volume 8.4 fL (7.4-10.4); Platelet Count 279 10x3/uL (130-400); RBC Distribution Width 14.6 % (11.5-14.5); Red Blood Cell (RBC) Count 2.59 mill/uL (4.20-5.40)
[2023-02-06 06:02] LABS: INR-International Normal Ratio 1.2; Prothrombin Time 15.6 sec (12.0-14.7)
[2023-02-06] MEDS: Sodium Chloride 0.9% 1,000 ML IV SCH ×2 (06:02→16:58)
[2023-02-06 06:06] LABS: Anion Gap 10 mmol/L (10-20); BUN (Urea Nitrogen) 10 mg/dL (9.8-20.1); Calc. Creatinine Clearance 81 mL/min (70-130); Calcium 8.4 mg/dL (7.8-10.44); Carbon Dioxide 24 mmol/L (23-31); Chloride 110 mmol/L (98-107); Estimated GFR 90; Glucose 140 mg/dL (83-110); Magnesium 1.9 mg/dL (1.6-2.6); Potassium 4.1 mmol/L (3.5-5.1); Sodium 140 mmol/L (136-145)
[2023-02-06] MEDS ORDERED: Magnesium 2 GM/50 ML(in water) 2 GM in Premix Bag 1 BAG IVPB SCH (08:00)
[2023-02-06 08:48] LABS: PTT 135.9 sec (22.9-36.1)
[2023-02-06] MEDS: Lidocaine 4% Patch TD SCH (09:37)
[2023-02-06] MEDS: Aspirin 81 mg Enteric Coated Tablet PO SCH (09:38)
[2023-02-06] MEDS: Folic Acid 1 MG TAB PO SCH (09:38)
[2023-02-06] MEDS: Gabapentin 300 MG CAP PO SCH ×3 (09:38→20:21)
[2023-02-06] MEDS: Ezetimibe 10 MG TAB PO SCH (09:38)
[2023-02-06] MEDS: Cyanocobalamin (Vitamin B-12) 1,000 MCG TAB PO SCH (09:38)
[2023-02-06] MEDS: Dronedarone HCl 400 MG TAB PO SCH ×2 (09:38→16:56)
[2023-02-06] MEDS: Metoprolol Tartrate 25 MG TAB PO SCH ×2 (09:39→20:21)
[2023-02-06] MEDS: HumaLOG 300 UNITS/3 ML VIAL SC PRN (12:52)
[2023-02-06] MEDS: Warfarin Sodium 3 MG TAB PO SCH (16:56)
[2023-02-06] MEDS: Atorvastatin Calcium 40 MG TAB PO SCH (20:21)
[2023-02-07 02:24] LABS: #Basophils 0.1 thou/uL (0.0-0.2); #Eosinphils 0.5 thou/uL (0.0-0.7); #Monocytes 1.3 thou/uL (0.11-0.59); #Neutrophils 7.3 thou/uL (1.40-6.50); %Basophils 0.6 % (0.0-1.0); %Eosinophils 4.6 % (0.0-10.0); %Lymphocytes 17.4 % (21.0-51.0); %Monocytes 11.9 % (0.0-10.0); %Neutrophils 65.5 % (42.0-75.0); Hemoglobin 9.5 g/dL (12.0-16.0); Mean Corpuscular HGB CONC 32.5 g/dL (32.0-36.0); Mean Corpuscular Hemoglobin 34.5 pg (27.0-31.0); Mean Platelet Volume 8.2 fL (7.4-10.4); Platelet Count 328 10x3/uL (130-400); RBC Distribution Width 15.1 % (11.5-14.5); Red Blood Cell (RBC) Count 2.74 mill/uL (4.20-5.40); White Blood Cell (WBC) Count 11.2 10x3/uL (4.8-10.8)
[2023-02-07 02:35] LABS: INR-International Normal Ratio 1.2; Prothrombin Time 15.5 sec (12.0-14.7)
[2023-02-07 02:36] LABS: PTT 90.4 sec (22.9-36.1)
[2023-02-07 04:03] LABS: Anion Gap 12 mmol/L (10-20); BUN (Urea Nitrogen) 13 mg/dL (9.8-20.1); Calc. Creatinine Clearance 75 mL/min (70-130); Calcium 8.6 mg/dL (7.8-10.44); Carbon Dioxide 25 mmol/L (23-31); Chloride 108 mmol/L (98-107); Estimated GFR 85; Glucose 155 mg/dL (83-110); Magnesium 1.9 mg/dL (1.6-2.6); Potassium 4.2 mmol/L (3.5-5.1); Sodium 141 mmol/L (136-145)
[2023-02-07] MEDS: Acetaminophen 325 MG TAB PO SCH ×3 (05:25→17:03)
[2023-02-07] MEDS: Ezetimibe 10 MG TAB PO SCH (09:39)
[2023-02-07] MEDS: Gabapentin 300 MG CAP PO SCH ×3 (09:39→21:22)
[2023-02-07] MEDS: Cyanocobalamin (Vitamin B-12) 1,000 MCG TAB PO SCH (09:39)
[2023-02-07] MEDS: Dronedarone HCl 400 MG TAB PO SCH ×2 (09:40→17:03)
[2023-02-07] MEDS: Metoprolol Tartrate 25 MG TAB PO SCH ×2 (09:40→21:22)
[2023-02-07] MEDS: Aspirin 81 mg Enteric Coated Tablet PO SCH (09:40)
[2023-02-07] MEDS: Folic Acid 1 MG TAB PO SCH (09:40)
[2023-02-07] MEDS: Lidocaine 4% Patch TD SCH (09:40)
[2023-02-07] MEDS: HumaLOG 300 UNITS/3 ML VIAL SC PRN ×2 (12:24→17:03)
[2023-02-07] MEDS: Heparin 25,000 units/D5W 500 ML IV SCH (14:37)
[2023-02-07] MEDS: Warfarin Sodium 3 MG TAB PO SCH (17:04)
[2023-02-07] MEDS: Atorvastatin Calcium 40 MG TAB PO SCH (21:22)
[2023-02-07] MEDS: Transdermal Patch Removal TOP SCH (21:23)
[2023-02-08] MEDS: Acetaminophen 325 MG TAB PO SCH ×4 (00:25→17:17)
[2023-02-08 05:18] LABS: #Basophils 0.1 thou/uL (0.0-0.2); #Eosinphils 0.5 thou/uL (0.0-0.7); #Lymphocytes 2.1 thou/uL (1.20-3.40); #Monocytes 1.5 thou/uL (0.11-0.59); #Neutrophils 7.3 thou/uL (1.40-6.50); %Basophils 0.7 % (0.0-1.0); %Eosinophils 4.2 % (0.0-10.0); %Lymphocytes 18.3 % (21.0-51.0); %Monocytes 13.4 % (0.0-10.0); %Neutrophils 63.5 % (42.0-75.0); Hemoglobin 9.5 g/dL (12.0-16.0); Mean Corpuscular HGB CONC 32.4 g/dL (32.0-36.0); Mean Corpuscular Hemoglobin 34.6 pg (27.0-31.0); Platelet Count 358 10x3/uL (130-400); RBC Distribution Width 15.2 % (11.5-14.5); Red Blood Cell (RBC) Count 2.75 mill/uL (4.20-5.40); White Blood Cell (WBC) Count 11.5 10x3/uL (4.8-10.8)
[2023-02-08 05:28] LABS: Anion Gap 10 mmol/L (10-20); BUN (Urea Nitrogen) 13 mg/dL (9.8-20.1); Calc. Creatinine Clearance 80 mL/min (70-130); Calcium 8.5 mg/dL (7.8-10.44); Carbon Dioxide 27 mmol/L (23-31); Chloride 107 mmol/L (98-107); Estimated GFR 89; Glucose 141 mg/dL (83-110); INR-International Normal Ratio 1.2; Magnesium 1.7 mg/dL (1.6-2.6); PTT 71.3 sec (22.9-36.1); Potassium 4.2 mmol/L (3.5-5.1); Prothrombin Time 15.6 sec (12.0-14.7); Sodium 140 mmol/L (136-145)
[2023-02-08] MEDS ORDERED: Magnesium 2 GM/50 ML(in water) 2 GM in Premix Bag 1 BAG IVPB SCH (05:45)
[2023-02-08] MEDS: Dronedarone HCl 400 MG TAB PO SCH ×2 (08:57→16:49)
[2023-02-08] MEDS: Ezetimibe 10 MG TAB PO SCH (08:58)
[2023-02-08] MEDS: Gabapentin 300 MG CAP PO SCH ×3 (08:58→21:56)
[2023-02-08] MEDS: Metoprolol Tartrate 25 MG TAB PO SCH ×2 (08:58→21:56)
[2023-02-08] MEDS: Cyanocobalamin (Vitamin B-12) 1,000 MCG TAB PO SCH (08:58)
[2023-02-08] MEDS: Aspirin 81 mg Enteric Coated Tablet PO SCH (08:59)
[2023-02-08] MEDS: Folic Acid 1 MG TAB PO SCH (08:59)
[2023-02-08] MEDS: Lidocaine 4% Patch TD SCH (08:59)
[2023-02-08] MEDS: Warfarin Sodium 3 MG TAB PO SCH (16:49)
[2023-02-08] MEDS: HumaLOG 300 UNITS/3 ML VIAL SC PRN (17:17)
[2023-02-08] MEDS: Transdermal Patch Removal TOP SCH (21:56)
[2023-02-08] MEDS: Atorvastatin Calcium 40 MG TAB PO SCH (21:56)
[2023-02-08] MEDS: traMADol HCl 50 MG TAB PO PRN (21:57)
[2023-02-09] MEDS: Acetaminophen 325 MG TAB PO SCH ×4 (00:42→21:18)
[2023-02-09 04:51] LABS: INR-International Normal Ratio 1.2
[2023-02-09 07:54] LABS: #Basophils 0.1 thou/uL (0.0-0.2); #Eosinphils 0.5 thou/uL (0.0-0.7); #Lymphocytes 2.5 thou/uL (1.20-3.40); #Monocytes 1.4 thou/uL (0.11-0.59); #Neutrophils 6.5 thou/uL (1.40-6.50); %Basophils 0.6 % (0.0-1.0); %Eosinophils 4.5 % (0.0-10.0); %Lymphocytes 22.6 % (21.0-51.0); %Monocytes 12.7 % (0.0-10.0); %Neutrophils 59.6 % (42.0-75.0); Hemoglobin 9.9 g/dL (12.0-16.0); Mean Corpuscular HGB CONC 32.5 g/dL (32.0-36.0); Mean Platelet Volume 8.5 fL (7.4-10.4); Platelet Count 412 10x3/uL (130-400); RBC Distribution Width 15.6 % (11.5-14.5); Red Blood Cell (RBC) Count 2.84 mill/uL (4.20-5.40)
[2023-02-09 08:19] LABS: Anion Gap 13 mmol/L (10-20); BUN (Urea Nitrogen) 15 mg/dL (9.8-20.1); Calc. Creatinine Clearance 79 mL/min (70-130); Carbon Dioxide 25 mmol/L (23-31); Chloride 104 mmol/L (98-107); Estimated GFR 89; Glucose 133 mg/dL (83-110); Potassium 4.5 mmol/L (3.5-5.1); Sodium 137 mmol/L (136-145)
[2023-02-09] MEDS: Dronedarone HCl 400 MG TAB PO SCH ×2 (09:02→16:25)
[2023-02-09] MEDS: traMADol HCl 50 MG TAB PO PRN ×2 (09:02→16:27)
[2023-02-09] MEDS: Gabapentin 300 MG CAP PO SCH ×3 (09:03→22:20)
[2023-02-09] MEDS: Cyanocobalamin (Vitamin B-12) 1,000 MCG TAB PO SCH (09:03)
[2023-02-09] MEDS: Ezetimibe 10 MG TAB PO SCH (09:03)
[2023-02-09] MEDS: Folic Acid 1 MG TAB PO SCH (09:03)
[2023-02-09] MEDS: Metoprolol Tartrate 25 MG TAB PO SCH ×2 (09:04→22:20)
[2023-02-09] MEDS: Aspirin 81 mg Enteric Coated Tablet PO SCH (09:04)
[2023-02-09] MEDS: Lidocaine 4% Patch TD SCH (09:04)
[2023-02-09] MEDS: Heparin 25,000 units/D5W 500 ML IV SCH (10:43)
[2023-02-09] MEDS: Warfarin Sodium 3 MG TAB PO SCH (16:29)
[2023-02-09] MEDS: HumaLOG 300 UNITS/3 ML VIAL SC PRN (16:32)
[2023-02-09] MEDS: Atorvastatin Calcium 40 MG TAB PO SCH (22:19)
[2023-02-09] MEDS: Transdermal Patch Removal TOP SCH (22:20)
[2023-02-10] MEDS: Acetaminophen 325 MG TAB PO SCH ×4 (00:14→17:11)
[2023-02-10] MEDS: traMADol HCl 50 MG TAB PO PRN ×2 (03:51→21:14)
[2023-02-10 04:48] LABS: #Basophils 0.1 thou/uL (0.0-0.2); #Eosinphils 0.5 thou/uL (0.0-0.7); #Lymphocytes 2.2 thou/uL (1.20-3.40); #Monocytes 1.5 thou/uL (0.11-0.59); #Neutrophils 6.5 thou/uL (1.40-6.50); %Basophils 0.5 % (0.0-1.0); %Lymphocytes 20.6 % (21.0-51.0); %Monocytes 13.5 % (0.0-10.0); %Neutrophils 60.3 % (42.0-75.0); Hemoglobin 11.1 g/dL (12.0-16.0); Mean Corpuscular Hemoglobin 35.7 pg (27.0-31.0); Mean Platelet Volume 8.1 fL (7.4-10.4); Platelet Count 445 10x3/uL (130-400); RBC Distribution Width 15.7 % (11.5-14.5); Red Blood Cell (RBC) Count 3.11 mill/uL (4.20-5.40); White Blood Cell (WBC) Count 10.8 10x3/uL (4.8-10.8)
[2023-02-10 04:53] LABS: INR-International Normal Ratio 1.4; PTT 75.3 sec (22.9-36.1); Prothrombin Time 17.7 sec (12.0-14.7)
[2023-02-10 05:12] LABS: Anion Gap 13 mmol/L (10-20); BUN (Urea Nitrogen) 14 mg/dL (9.8-20.1); Calc. Creatinine Clearance 79 mL/min (70-130); Calcium 9.3 mg/dL (7.8-10.44); Carbon Dioxide 25 mmol/L (23-31); Chloride 104 mmol/L (98-107); Estimated GFR 89; Glucose 121 mg/dL (83-110); Potassium 4.5 mmol/L (3.5-5.1); Sodium 137 mmol/L (136-145)
[2023-02-10] MEDS: Folic Acid 1 MG TAB PO SCH (09:17)
[2023-02-10] MEDS: Cyanocobalamin (Vitamin B-12) 1,000 MCG TAB PO SCH (09:17)
[2023-02-10] MEDS: Gabapentin 300 MG CAP PO SCH ×3 (09:17→21:13)
[2023-02-10] MEDS: Dronedarone HCl 400 MG TAB PO SCH ×2 (09:17→17:10)
[2023-02-10] MEDS: Lidocaine 4% Patch TD SCH (09:17)
[2023-02-10] MEDS: Ezetimibe 10 MG TAB PO SCH (09:17)
[2023-02-10] MEDS: Metoprolol Tartrate 25 MG TAB PO SCH ×2 (09:17→21:15)
[2023-02-10] MEDS: Warfarin Sodium 3 MG TAB PO SCH (17:10)
[2023-02-10] MEDS: Atorvastatin Calcium 40 MG TAB PO SCH (21:13)
[2023-02-10] MEDS: Transdermal Patch Removal TOP SCH (21:20)
[2023-02-11] MEDS: Acetaminophen 325 MG TAB PO SCH ×4 (02:08→18:32)
[2023-02-11 05:01] LABS: #Basophils 0.1 thou/uL (0.0-0.2); #Eosinphils 0.4 thou/uL (0.0-0.7); #Lymphocytes 1.9 thou/uL (1.20-3.40); #Monocytes 1.3 thou/uL (0.11-0.59); #Neutrophils 5.1 thou/uL (1.40-6.50); %Basophils 0.9 % (0.0-1.0); %Eosinophils 4.6 % (0.0-10.0); %Lymphocytes 21.6 % (21.0-51.0); %Monocytes 14.9 % (0.0-10.0); %Neutrophils 58.1 % (42.0-75.0); Hemoglobin 11.4 g/dL (12.0-16.0); Mean Corpuscular Hemoglobin 36.7 pg (27.0-31.0); Mean Platelet Volume 8.6 fL (7.4-10.4); Platelet Count 414 10x3/uL (130-400); RBC Distribution Width 15.5 % (11.5-14.5); Red Blood Cell (RBC) Count 3.12 mill/uL (4.20-5.40); White Blood Cell (WBC) Count 8.8 10x3/uL (4.8-10.8)
[2023-02-11 05:17] LABS: INR-International Normal Ratio 1.7; Prothrombin Time 20.8 sec (12.0-14.7)
[2023-02-11 05:19] LABS: PTT 116.5 sec (22.9-36.1)
[2023-02-11 06:38] LABS: Anion Gap 14 mmol/L (10-20); BUN (Urea Nitrogen) 17 mg/dL (9.8-20.1); Calc. Creatinine Clearance 76 mL/min (70-130); Calcium 9.2 mg/dL (7.8-10.44); Carbon Dioxide 23 mmol/L (23-31); Chloride 103 mmol/L (98-107); Estimated GFR 86; Glucose 142 mg/dL (83-110); Potassium 4.2 mmol/L (3.5-5.1); Sodium 136 mmol/L (136-145)
[2023-02-11] MEDS: Metoprolol Tartrate 25 MG TAB PO SCH ×2 (08:55→20:47)
[2023-02-11] MEDS: Dronedarone HCl 400 MG TAB PO SCH ×2 (08:55→16:27)
[2023-02-11] MEDS: Lidocaine 4% Patch TD SCH (08:55)
[2023-02-11] MEDS: Folic Acid 1 MG TAB PO SCH (08:55)
[2023-02-11] MEDS: Gabapentin 300 MG CAP PO SCH ×3 (08:55→20:47)
[2023-02-11] MEDS: Cyanocobalamin (Vitamin B-12) 1,000 MCG TAB PO SCH (08:55)
[2023-02-11] MEDS: Ezetimibe 10 MG TAB PO SCH (08:55)
[2023-02-11] MEDS: Heparin 25,000 units/D5W 500 ML IV SCH (09:05)
[2023-02-11] MEDS: traMADol HCl 50 MG TAB PO PRN ×2 (09:30→20:48)
[2023-02-11] MEDS: HumaLOG 300 UNITS/3 ML VIAL SC PRN (11:48)
[2023-02-11] MEDS: Heparin 10,000 UNITS/ 10 ML VIAL SLOW IVP SCH (14:04)
[2023-02-11] MEDS: Warfarin Sodium 3 MG TAB PO SCH (16:27)
[2023-02-11 20:13] LABS: PTT 158.1 sec (22.9-36.1)
[2023-02-11] MEDS: Atorvastatin Calcium 40 MG TAB PO SCH (20:46)
[2023-02-12] MEDS: Transdermal Patch Removal TOP SCH ×2 (02:02→21:45)
[2023-02-12] MEDS: Acetaminophen 325 MG TAB PO SCH ×4 (02:03→17:31)
[2023-02-12 05:33] LABS: PTT 53.7 sec (22.9-36.1); Prothrombin Time 23.8 sec (12.0-14.7)
[2023-02-12 05:39] LABS: #Basophils 0.1 thou/uL (0.0-0.2); #Eosinphils 0.3 thou/uL (0.0-0.7); #Lymphocytes 1.8 thou/uL (1.20-3.40); #Monocytes 1.6 thou/uL (0.11-0.59); #Neutrophils 7.3 thou/uL (1.40-6.50); %Basophils 0.5 % (0.0-1.0); %Eosinophils 2.7 % (0.0-10.0); %Lymphocytes 16.2 % (21.0-51.0); %Monocytes 14.7 % (0.0-10.0); %Neutrophils 65.9 % (42.0-75.0); Hemoglobin 12.5 g/dL (12.0-16.0); Mean Corpuscular HGB CONC 34.3 g/dL (32.0-36.0); Mean Corpuscular Hemoglobin 36.9 pg (27.0-31.0); Mean Platelet Volume 7.9 fL (7.4-10.4); Platelet Count 492 10x3/uL (130-400); RBC Distribution Width 15.8 % (11.5-14.5); Red Blood Cell (RBC) Count 3.39 mill/uL (4.20-5.40); White Blood Cell (WBC) Count 11.1 10x3/uL (4.8-10.8)
[2023-02-12 05:47] LABS: Anion Gap 13 mmol/L (10-20); BUN (Urea Nitrogen) 15 mg/dL (9.8-20.1); Calc. Creatinine Clearance 68 mL/min (70-130); Calcium 9.6 mg/dL (7.8-10.44); Carbon Dioxide 26 mmol/L (23-31); Chloride 102 mmol/L (98-107); Estimated GFR 76; Glucose 153 mg/dL (83-110); Potassium 4.5 mmol/L (3.5-5.1); Sodium 136 mmol/L (136-145)
[2023-02-12] MEDS: Heparin 10,000 UNITS/ 10 ML VIAL SLOW IVP SCH (06:44)
[2023-02-12] MEDS ORDERED: Bisacodyl 10 MG SUPP PR PRN (07:56)
[2023-02-12] MEDS: Polyethylene Glycol 3350 17 GM Packet PO SCH (08:30)
[2023-02-12] MEDS: Lidocaine 4% Patch TD SCH (08:30)
[2023-02-12] MEDS: traMADol HCl 50 MG TAB PO PRN ×3 (08:31→21:44)
[2023-02-12] MEDS: Ezetimibe 10 MG TAB PO SCH (08:31)
[2023-02-12] MEDS: Gabapentin 300 MG CAP PO SCH ×3 (08:31→21:43)
[2023-02-12] MEDS: Dronedarone HCl 400 MG TAB PO SCH ×2 (08:31→17:31)
[2023-02-12] MEDS: Cyanocobalamin (Vitamin B-12) 1,000 MCG TAB PO SCH (08:32)
[2023-02-12] MEDS: Folic Acid 1 MG TAB PO SCH (08:32)
[2023-02-12] MEDS: Senokot S 8.6-50 MG TAB PO SCH ×2 (08:32→21:44)
[2023-02-12] MEDS: Metoprolol Tartrate 25 MG TAB PO SCH ×2 (08:32→21:44)
[2023-02-12] MEDS: HumaLOG 300 UNITS/3 ML VIAL SC PRN ×3 (11:16→21:46)
[2023-02-12] MEDS: Warfarin Sodium 3 MG TAB PO SCH (17:31)
[2023-02-12] MEDS: Atorvastatin Calcium 40 MG TAB PO SCH (21:44)
[2023-02-13] MEDS: Acetaminophen 325 MG TAB PO SCH ×4 (00:44→17:20)
[2023-02-13 05:14] LABS: Prothrombin Time 23.8 sec (12.0-14.7)
[2023-02-13 07:09] LABS: Anion Gap 11 mmol/L (10-20); BUN (Urea Nitrogen) 18 mg/dL (9.8-20.1); Calc. Creatinine Clearance 71 mL/min (70-130); Carbon Dioxide 26 mmol/L (23-31); Chloride 101 mmol/L (98-107); Estimated GFR 80; Glucose 131 mg/dL (83-110); Potassium 4.3 mmol/L (3.5-5.1); Sodium 134 mmol/L (136-145)
[2023-02-13 07:10] LABS: Hemoglobin 12.1 g/dL (12.0-16.0); Mean Corpuscular HGB CONC 32.1 g/dL (32.0-36.0); Mean Corpuscular Hemoglobin 34.7 pg (27.0-31.0); Mean Platelet Volume 8.1 fL (7.4-10.4); Platelet Count 495 10x3/uL (130-400); RBC Distribution Width 15.7 % (11.5-14.5); Red Blood Cell (RBC) Count 3.47 mill/uL (4.20-5.40); White Blood Cell (WBC) Count 8.8 10x3/uL (4.8-10.8)
[2023-02-13 10:25] LABS: Band 8 % (5-11); Burr Cells MODERATE= 6-15 cells (100X) (0-1/hpf); Eosinophils 3 % (0-10); Lymphocytes 19 % (21-51); MDiff Complete? YES; Macrocytosis SLIGHT = 6-15 cells (100X) (0-5/hpf); Monocytes 19 % (0-10); Neutrophil 51 % (42-75); Platelet Morphology Comment Appears Increased; Polychromasia SLIGHT = 2-3 cells (100X) (0-2/hpf)
[2023-02-13] MEDS: Metoprolol Tartrate 25 MG TAB PO SCH ×2 (11:38→20:17)
[2023-02-13] MEDS: Dronedarone HCl 400 MG TAB PO SCH ×2 (11:38→16:26)
[2023-02-13] MEDS: Senokot S 8.6-50 MG TAB PO SCH ×3 (11:39→20:55)
[2023-02-13] MEDS: Lidocaine 4% Patch TD SCH (11:58)
[2023-02-13] MEDS ORDERED: Dextrose 5 % And 0.9 % NaCl 1,000 ML IV SCH (12:30)
[2023-02-13] MEDS: Ezetimibe 10 MG TAB PO SCH (15:41)
[2023-02-13] MEDS: Cyanocobalamin (Vitamin B-12) 1,000 MCG TAB PO SCH (15:43)
[2023-02-13] MEDS: Folic Acid 1 MG TAB PO SCH (15:44)
[2023-02-13] MEDS: Polyethylene Glycol 3350 17 GM Packet PO SCH (15:49)
[2023-02-13] MEDS: Gabapentin 300 MG CAP PO SCH (15:55)
[2023-02-13] MEDS: Warfarin Sodium 10 MG TAB PO SCH (16:27)
[2023-02-13] MEDS: HumaLOG 300 UNITS/3 ML VIAL SC PRN ×2 (16:35→21:08)
[2023-02-13] MEDS: Atorvastatin Calcium 40 MG TAB PO SCH ×2 (20:17→20:56)
[2023-02-13] MEDS: Transdermal Patch Removal TOP SCH (20:23)
[2023-02-14] MEDS: Acetaminophen 325 MG TAB PO SCH ×4 (02:27→16:52)
[2023-02-14 05:08] LABS: INR-International Normal Ratio 2.2; Prothrombin Time 25.2 sec (12.0-14.7)
[2023-02-14] MEDS ORDERED: Warfarin Sodium 5 MG TAB PO SCH (07:00)
[2023-02-14] MEDS: Polyethylene Glycol 3350 17 GM Packet PO SCH (09:35)
[2023-02-14] MEDS: Ezetimibe 10 MG TAB PO SCH (09:35)
[2023-02-14] MEDS: Senokot S 8.6-50 MG TAB PO SCH ×2 (09:35→20:25)
[2023-02-14] MEDS: Lidocaine 4% Patch TD SCH (09:35)
[2023-02-14] MEDS: Cyanocobalamin (Vitamin B-12) 1,000 MCG TAB PO SCH (09:35)
[2023-02-14] MEDS: Dronedarone HCl 400 MG TAB PO SCH ×2 (09:35→16:52)
[2023-02-14] MEDS: Folic Acid 1 MG TAB PO SCH (09:35)
[2023-02-14] MEDS: Metoprolol Tartrate 25 MG TAB PO SCH ×2 (09:40→20:25)
[2023-02-14] MEDS: Warfarin Sodium 10 MG TAB PO SCH (16:52)
[2023-02-14] MEDS: HumaLOG 300 UNITS/3 ML VIAL SC PRN (18:16)
[2023-02-14] MEDS: Atorvastatin Calcium 40 MG TAB PO SCH (20:25)
[2023-02-14] MEDS: Transdermal Patch Removal TOP SCH (20:31)
[2023-02-15] MEDS: Acetaminophen 325 MG TAB PO SCH ×3 (01:54→14:57)
[2023-02-15 04:43] LABS: Hemoglobin 10.6 g/dL (12.0-16.0); Platelet Count 450 10x3/uL (130-400)
[2023-02-15 04:56] LABS: INR-International Normal Ratio 2.6; Prothrombin Time 28.8 sec (12.0-14.7)
[2023-02-15] MEDS: Ezetimibe 10 MG TAB PO SCH (09:04)
[2023-02-15] MEDS: Metoprolol Tartrate 25 MG TAB PO SCH (09:04)
[2023-02-15] MEDS: Senokot S 8.6-50 MG TAB PO SCH (09:04)
[2023-02-15] MEDS: Cyanocobalamin (Vitamin B-12) 1,000 MCG TAB PO SCH (09:04)
[2023-02-15] MEDS: Folic Acid 1 MG TAB PO SCH (09:05)
[2023-02-15] MEDS: Lidocaine 4% Patch TD SCH (09:05)
[2023-02-15] MEDS: Dronedarone HCl 400 MG TAB PO SCH (09:21)
[2023-02-15] MEDS: Polyethylene Glycol 3350 17 GM Packet PO SCH (09:21)
[2023-02-15 11:26] VITALS: TEMP 98
[2023-02-15 11:53] VITALS: BP 181/82
== END 2023-02-15 15:00 | DRG 604 ==
LOC: ERS 16:17 → ERHOLD 21:52 → OBSVTOIN 02-01 10:41 → 2NO 02-01 14:54
PROVIDERS: ADMIT Student in an Organized Health Care Education/Training Program; ATTEND Internal Medicine
DX: S30.0XXA Contusion of lower back and pelvis, initial encounter (principal); G93.41 Metabolic encephalopathy; I48.11 Longstanding persistent atrial fibrillation; I10 Essential (primary) hypertension; E78.5 Hyperlipidemia, unspecified; D72.829 Elevated white blood cell count, unspecified; W19.XXXA Unspecified fall, initial encounter; E11.51 Type 2 diabetes mellitus with diabetic peripheral angiopathy without gangrene; M48.061 Spinal stenosis, lumbar region without neurogenic claudication; Z91.040 Latex allergy status; Z88.1 Allergy status to other antibiotic agents; Z88.8 Allergy status to other drugs, medicaments and biological substances; Z79.84 Long term (current) use of oral hypoglycemic drugs; Z79.82 Long term (current) use of aspirin; Z95.2 Presence of prosthetic heart valve; Z79.02 Long term (current) use of antithrombotics/antiplatelets
CPT/HCPCS: 36415; 36416; 70450; 72100; 72148; 75635; 76999; 80048; 80053; 80076; 81001; 82533; 82550; 82607; 83036; 83735; 84443; 85014; 85018; 85025; 85049; 85610; 85730; 86850; 86900; 86901; 87040; 93005; 93923; 96372; 96374; 96375; 96376; G0378; J1644; J1650; J1815; J2270; J2272; J2405; J3475; J7030; J7042; J7050; J7120; Q9967

== ENCOUNTER 2023-04-23 13:12 | Outpatient (CLI) | payer MEDICARE, BC | END 2023-04-23 13:13 | disposition home or self-care (01) | LOC: RAD 13:12 | PROVIDERS: ATTEND Family Medicine | DX: M79.672 Pain in left foot (principal); M18.12 Unilateral primary osteoarthritis of first carpometacarpal joint, left hand; M21.962 Unspecified acquired deformity of left lower leg ==

== ENCOUNTER 2023-07-20 13:47 | Emergency (ER) | payer MEDICARE, BC ==
[2023-07-20 14:30] LABS: #Basophils 0.1 thou/uL (0.0-0.2); #Eosinphils 0.1 thou/uL (0.0-0.7); #Monocytes 0.9 thou/uL (0.11-0.59); #Neutrophils 6.3 thou/uL (1.40-6.50); %Basophils 0.9 % (0.0-1.0); %Eosinophils 1.1 % (0.0-10.0); %Lymphocytes 18.5 % (21.0-51.0); %Monocytes 10.1 % (0.0-10.0); %Neutrophils 69.2 % (42.0-75.0); Hematocrit 37.8 % (36.0-47.0); Hemoglobin 12.4 g/dL (12.0-16.0); Mean Corpuscular HGB CONC 32.8 g/dL (32.0-36.0); Mean Corpuscular Hemoglobin 33.5 pg (27.0-31.0); Mean Corpuscular Volume 102.2 fl (78.0-98.0); Mean Platelet Volume 10.8 fL (7.4-10.4); Platelet Count 317 10x3/uL (130-400); RBC Distribution Width 14.2 % (11.5-14.5); White Blood Cell (WBC) Count 9.2 10x3/uL (4.8-10.8)
[2023-07-20 14:52] LABS: ALT (SGPT) 13 U/L (8-55); AST (SGOT) 20 U/L (5-34); Albumin 3.7 g/dL (3.4-4.8); Alkaline Phosphatase 40 U/L (40-110); Anion Gap 11 mmol/L (10-20); BUN (Urea Nitrogen) 23 mg/dL (9.8-20.1); Bilirubin, Total 0.7 mg/dL (0.2-1.2); Calc. Creatinine Clearance 0 mL/min (70-130); Calcium 9.6 mg/dL (7.8-10.44); Carbon Dioxide 26 mmol/L (23-31); Chloride 105 mmol/L (98-107); Estimated GFR 84; Globulin 3.3 g/dL (2.4-3.5); Glucose 133 mg/dL (83-110); Potassium 4.1 mmol/L (3.5-5.1); Sodium 138 mmol/L (136-145)
== END 2023-07-20 17:18 | disposition home or self-care (01) ==
LOC: ERS 13:47
DX: M70.61 Trochanteric bursitis, right hip (principal); I10 Essential (primary) hypertension; E78.5 Hyperlipidemia, unspecified; E11.9 Type 2 diabetes mellitus without complications; I48.91 Unspecified atrial fibrillation
CPT/HCPCS: 36415; 80053; 83605; 85025

== ENCOUNTER 2024-03-24 22:56 | Observation (INO) | payer BC, MEDICARE ==
[2024-03-24 23:49] LABS: #Basophils 0.07 10x3/uL (0.0-0.2); %Basophils 0.6 % (0.0-1.0); %Eosinophils 0.4 % (0.0-10.0); %Lymphocytes 12.1 % (21.0-51.0); %Monocytes 8.8 % (0.0-10.0); %Neutrophils 77.8 % (42.0-75.0); Hemoglobin 12.5 g/dL (12.0-16.0); Mean Corpuscular HGB CONC 32.9 g/dL (32.0-36.0); Mean Corpuscular Hemoglobin 33.3 pg (27.0-31.0); Mean Corpuscular Volume 101.3 fL (78.0-98.0); Mean Platelet Volume 10.8 fL (7.4-10.4); Platelet Count 402 10x3/uL (130-400); RBC Distribution Width 14.4 % (11.5-14.5); Red Blood Cell (RBC) Count 3.75 mill/uL (4.20-5.40)
[2024-03-25 00:02] LABS: Prothrombin Time 31.6 sec (12.0-14.7)
[2024-03-25 00:03] LABS: PTT 52.3 sec (22.9-36.1)
[2024-03-25 00:05] LABS: ALT (SGPT) 13 U/L (8-55); AST (SGOT) 23 U/L (5-34); Albumin 3.4 g/dL (3.4-4.8); Alkaline Phosphatase 71 U/L (40-110); Anion Gap 15 mmol/L (10-20); BUN (Urea Nitrogen) 18 mg/dL (9.8-20.1); Bilirubin, Total 0.8 mg/dL (0.2-1.2); Calc. Creatinine Clearance 0 mL/min (70-130); Calcium 9.6 mg/dL (7.8-10.44); Carbon Dioxide 25 mmol/L (23-31); Chloride 101 mmol/L (98-107); Estimated GFR 89; Globulin 4.1 g/dL (2.4-3.5); Glucose 158 mg/dL (83-110); Lipase 24 U/L (8-78); Magnesium 1.3 mg/dL (1.6-2.6); Potassium 3.7 mmol/L (3.5-5.1); Protein, Total 7.5 g/dL (5.8-8.1); Sodium 137 mmol/L (136-145)
[2024-03-25 00:11] LABS: Troponin I 0.014 ng/mL (< 0.028)
[2024-03-25] MEDS ORDERED: Famotidine/PF 20 mg/2ml Vial ONE (00:12)
[2024-03-25] MEDS ORDERED: Ondansetron PF 4 MG/2 ML Vial ONE (00:12)
[2024-03-25] MEDS ORDERED: hydrALAZINE 20 MG/ML VIAL ONE (00:56)
[2024-03-25] MEDS ORDERED: Magnesium 2 GM/50 ML BAG (IN WATER) ONE ×2 (00:57→03:31)
[2024-03-25] MEDS ORDERED: Metoprolol Tartrate 5 MG (5 mL) VIAL ONE (01:28)
[2024-03-25] MEDS ORDERED: Ondansetron PF 4 MG/2 ML Vial IVP PRN ×2 (02:00→02:15)
[2024-03-25] MEDS ORDERED: Senokot S 8.6-50 MG TAB PO PRN (02:13)
[2024-03-25] MEDS ORDERED: Acetaminophen/Codeine 30-300mg Tablet PO PRN (02:13)
[2024-03-25] MEDS ORDERED: Dextrose 5% in Water 1,000 ML IV PRN (02:15)
[2024-03-25] MEDS ORDERED: Glucagon 1 MG/ML KIT IM PRN (02:15)
[2024-03-25] MEDS ORDERED: Dextrose 50% Abboject 50 ML SYRINGE SLOW IVP PRN (02:15)
[2024-03-25] MEDS ORDERED: Acetaminophen 325 MG TAB PO PRN (02:15)
[2024-03-25] MEDS ORDERED: HumaLOG 300 UNITS/3 ML VIAL SC PRN ×2 (02:15)
[2024-03-25 03:08] VITALS: BMI 22.8
[2024-03-25 03:28] LABS: #Basophils 0.05 10x3/uL (0.0-0.2); #Eosinphils Less than 0.03 10x3/uL (0.0-0.7); %Basophils 0.4 % (0.0-1.0); %Eosinophils 0.1 % (0.0-10.0); %Lymphocytes 10.1 % (21.0-51.0); %Monocytes 10.3 % (0.0-10.0); %Neutrophils 78.7 % (42.0-75.0); Hematocrit 37.2 % (36.0-47.0); Hemoglobin 12.1 g/dL (12.0-16.0); Mean Corpuscular HGB CONC 32.5 g/dL (32.0-36.0); Mean Corpuscular Hemoglobin 33.6 pg (27.0-31.0); Mean Corpuscular Volume 103.3 fL (78.0-98.0); Mean Platelet Volume 10.5 fL (7.4-10.4); Platelet Count 393 10x3/uL (130-400); RBC Distribution Width 14.4 % (11.5-14.5)
[2024-03-25] MEDS: Magnesium 2 GM/50 ML(in water) 2 GM in Premix 1 BAG IVPB SCH (03:34)
[2024-03-25 03:42] LABS: Prothrombin Time 31.7 sec (12.0-14.7)
[2024-03-25 03:47] LABS: Troponin I 0.044 ng/mL (< 0.028)
[2024-03-25 04:24] LABS: Anion Gap 11 mmol/L (10-20); BUN (Urea Nitrogen) 14 mg/dL (9.8-20.1); Calc. Creatinine Clearance 80 mL/min (70-130); Calcium 8.9 mg/dL (7.8-10.44); Carbon Dioxide 25 mmol/L (23-31); Chloride 101 mmol/L (98-107); Estimated GFR 92; Glucose 163 mg/dL (83-110); Potassium 3.4 mmol/L (3.5-5.1); Sodium 134 mmol/L (136-145)
[2024-03-25 09:27] LABS: Troponin I 0.036 ng/mL (< 0.028)
[2024-03-25] MEDS: glipiZIDE 5 MG TAB PO SCH (09:53)
[2024-03-25] MEDS: Cyanocobalamin (Vitamin B-12) 1,000 MCG TAB PO SCH (09:53)
[2024-03-25] MEDS: metFORMIN XR 500 MG ER.TAB PO SCH (09:53)
[2024-03-25] MEDS ORDERED: Famotidine 20 MG TAB ONE (09:58)
[2024-03-25] MEDS ORDERED: Gabapentin 100 MG CAP ONE (09:58)
[2024-03-25] MEDS ORDERED: Lisinopril 10 MG TAB ONE (09:58)
[2024-03-25] MEDS ORDERED: Potassium Chloride 20 MEQ TAB ONE (09:58)
[2024-03-25] MEDS ORDERED: Aspirin 81 mg Enteric Coated Tablet ONE (09:58)
[2024-03-25] MEDS: Lisinopril 10 MG TAB PO SCH (10:00)
[2024-03-25] MEDS: Potassium Chloride 20 MEQ TAB PO SCH (10:00)
[2024-03-25] MEDS: Aspirin 81 mg Enteric Coated Tablet PO SCH (10:00)
[2024-03-25] MEDS: Gabapentin 100 MG CAP PO SCH (10:00)
[2024-03-25 11:28] LABS: Magnesium 2.1 mg/dL (1.6-2.6)
[2024-03-25] MEDS: Famotidine/PF 20 mg/2ml Vial SLOW IVP SCH (14:20)
[2024-03-25 15:49] VITALS: BP 147/70; TEMP 98.6
[2024-03-25] MEDS ORDERED: Warfarin Sodium 3 MG TAB PO SCH (17:00)
[2024-03-25] MEDS ORDERED: Atorvastatin Calcium 40 MG TAB PO SCH (21:00)
[2024-03-31] MEDS ORDERED: Warfarin Sodium 3 MG TAB PO SCH (17:00)
== END 2024-03-25 14:30 | disposition home or self-care (01) ==
LOC: ERS 22:56 → ERHOLD 23:00
PROVIDERS: ADMIT Student in an Organized Health Care Education/Training Program; ATTEND Internal Medicine
DX: R11.2 Nausea with vomiting, unspecified (principal); E11.9 Type 2 diabetes mellitus without complications; M54.9 Dorsalgia, unspecified; I16.0 Hypertensive urgency; G89.29 Other chronic pain; J30.81 Allergic rhinitis due to animal (cat) (dog) hair and dander; I48.91 Unspecified atrial fibrillation; Z90.49 Acquired absence of other specified parts of digestive tract; Z79.84 Long term (current) use of oral hypoglycemic drugs; Z98.890 Other specified postprocedural states; Z95.2 Presence of prosthetic heart valve; F03.90 Unspecified dementia, unspecified severity, without behavioral disturbance, psychotic disturbance, mood disturbance, and anxiety; Z91.040 Latex allergy status; Z88.6 Allergy status to analgesic agent; Z88.5 Allergy status to narcotic agent; Z91.018 Allergy to other foods
CPT/HCPCS: 70450; 80048; 80053; 82962 ×2; 83690; 83735 ×2; 84484 ×3; 85025 ×2; 85610 ×2; 85730; 93005 ×2; 94760; 96361; 96365; 96375; 96376; 99285; G0378; J0360; J2405; J3475; S0028; 36415; 36416

== ENCOUNTER 2024-05-06 09:23 | Inpatient (IN) | payer BC, MEDICARE ==
[2024-05-06 10:19] LABS: Bacteria/HPF None Seen HPF (None Seen); Bilirubin Negative (Negative); Blood, Urine Trace (Negative); CAUTI Indications for Culture Dysuria,urgency,freq; Clarity Clear (Clear); Glucose, Urine (Dipstick) 50 mg/dL (Negative); Ketone, Urine 10 mg/dL (Negative); Leukocyte Negative Leu/uL (Negative); Nitrite Negative (Negative); Protein, Urine (Dipstick) 30 mg/dL (Neg-Trace); RBC/HPF 0-3 HPF (0-3); Specific Gravity, Urine 1.017 (1.002-1.036); Squamous Epithelial None Seen HPF (0-3); Urobilinogen Normal mg/dL (Less than 2); WBC/HPF 0-3 HPF (0-3); pH, Urine 7.5 (5.0-9.0)
[2024-05-06 10:20] LABS: Urine Culture Reflex No No
[2024-05-06 10:23] LABS: #Basophils 0.07 10x3/uL (0.0-0.2); #Eosinphils Less than 0.03 10x3/uL (0.0-0.7); %Basophils 0.4 % (0.0-1.0); %Lymphocytes 3.8 % (21.0-51.0); %Monocytes 7.2 % (0.0-10.0); %Neutrophils 88.3 % (42.0-75.0); Hematocrit 40.3 % (36.0-47.0); Hemoglobin 13.4 g/dL (12.0-16.0); Mean Corpuscular HGB CONC 33.3 g/dL (32.0-36.0); Mean Corpuscular Hemoglobin 32.4 pg (27.0-31.0); Mean Corpuscular Volume 97.3 fL (78.0-98.0); Mean Platelet Volume 10.8 fL (7.4-10.4); Platelet Count 373 10x3/uL (130-400); RBC Distribution Width 13.2 % (11.5-14.5); Red Blood Cell (RBC) Count 4.14 mill/uL (4.20-5.40)
[2024-05-06 10:41] LABS: INR-International Normal Ratio 2.6; Prothrombin Time 28.2 sec (12.0-14.7)
[2024-05-06 10:42] LABS: PTT 43.9 sec (22.9-36.1)
[2024-05-06] MEDS ORDERED: Labetalol HCl 100 MG/20 ML VIAL ONE (11:33)
[2024-05-06 11:40] LABS: ALT (SGPT) 19 U/L (8-55); AST (SGOT) 27 U/L (5-34); Albumin 3.9 g/dL (3.4-4.8); Alkaline Phosphatase 60 U/L (40-110); Anion Gap 14 mmol/L (10-20); BUN (Urea Nitrogen) 18 mg/dL (9.8-20.1); CK (CPK) 603 U/L (29-168); Calc. Creatinine Clearance 0 mL/min (70-130); Calcium 9.9 mg/dL (7.8-10.44); Carbon Dioxide 25 mmol/L (23-31); Chloride 99 mmol/L (98-107); Estimated GFR 89; Globulin 4.1 g/dL (2.4-3.5); Glucose 141 mg/dL (83-110); Sodium 134 mmol/L (136-145)
[2024-05-06] MEDS ORDERED: Ondansetron PF 4 MG/2 ML Vial ONE (14:32)
[2024-05-06] MEDS ORDERED: Morphine 4 MG/ML VIAL ONE (14:32)
[2024-05-06] MEDS ORDERED: Morphine 4 MG/ML VIAL SLOW IVP PRN (15:22)
[2024-05-06] MEDS ORDERED: Acetaminophen 325 MG TAB PO PRN (15:22)
[2024-05-06] MEDS ORDERED: Dextrose 5% in Water 1,000 ML IV PRN (15:22)
[2024-05-06] MEDS ORDERED: Dextrose 50% Abboject 50 ML SYRINGE SLOW IVP PRN (15:22)
[2024-05-06] MEDS ORDERED: Ondansetron PF 4 MG/2 ML Vial IVP PRN (15:22)
[2024-05-06] MEDS ORDERED: traMADol HCl 50 MG TAB PO PRN (15:22)
[2024-05-06] MEDS ORDERED: Ondansetron ODT 4 MG TAB PO PRN (15:22)
[2024-05-06] MEDS ORDERED: Glucagon 1 MG/ML KIT IM PRN (15:22)
[2024-05-06 17:03] VITALS: BMI 23.3
[2024-05-06 17:50] LABS: Troponin I 0.015 ng/mL (< 0.028)
[2024-05-06] MEDS: TETANUS, DIPHTHERIA TOX,ADULT (TDVAX) 0.5 ML VIAL IM ONE (18:39)
[2024-05-06] MEDS: Famotidine 20 MG TAB PO SCH (20:07)
[2024-05-06] MEDS: Lactated Ringer's 1,000 ML IV SCH (20:07)
[2024-05-07 05:38] LABS: #Basophils 0.06 10x3/uL (0.0-0.2); %Basophils 0.6 % (0.0-1.0); %Eosinophils 0.5 % (0.0-10.0); %Lymphocytes 9.2 % (21.0-51.0); %Monocytes 15.2 % (0.0-10.0); Hematocrit 36.2 % (36.0-47.0); Hemoglobin 11.8 g/dL (12.0-16.0); Mean Corpuscular HGB CONC 32.6 g/dL (32.0-36.0); Mean Corpuscular Hemoglobin 32.8 pg (27.0-31.0); Mean Corpuscular Volume 100.6 fL (78.0-98.0); Mean Platelet Volume 10.9 fL (7.4-10.4); Platelet Count 355 10x3/uL (130-400); RBC Distribution Width 13.4 % (11.5-14.5)
[2024-05-07 05:59] LABS: ALT (SGPT) 14 U/L (8-55); AST (SGOT) 30 U/L (5-34); Albumin 3.3 g/dL (3.4-4.8); Alkaline Phosphatase 53 U/L (40-110); Anion Gap 13 mmol/L (10-20); BUN (Urea Nitrogen) 14 mg/dL (9.8-20.1); Bilirubin, Total 1.1 mg/dL (0.2-1.2); Calc. Creatinine Clearance 78 mL/min (70-130); Calcium 9.2 mg/dL (7.8-10.44); Carbon Dioxide 25 mmol/L (23-31); Chloride 103 mmol/L (98-107); Estimated GFR 91; Globulin 3.6 g/dL (2.4-3.5); Glucose 147 mg/dL (83-110); Potassium 3.9 mmol/L (3.5-5.1); Protein, Total 6.9 g/dL (5.8-8.1); Sodium 137 mmol/L (136-145)
[2024-05-07 10:10] LABS: Phosphorus 3.8 mg/dL (2.3-4.7)
[2024-05-07] MEDS ORDERED: HumaLOG 300 UNITS/3 ML VIAL SC PRN (10:29)
[2024-05-07] MEDS ORDERED: Insulin Lispro 100 UNIT/ML 10 ML VIAL SC PRN (10:50)
[2024-05-07 14:03] LABS: CK (CPK) 578 U/L (29-168); Magnesium 1.8 mg/dL (1.6-2.6)
[2024-05-07] MEDS: Lactated Ringer's 1,000 ML IV SCH (16:12)
[2024-05-07] MEDS: Warfarin Sodium 3 MG TAB PO SCH (16:12)
[2024-05-07] MEDS: Insulin Lispro 100 UNIT/ML 10 ML VIAL SC PRN (16:43)
[2024-05-07] MEDS: Gabapentin 100 MG CAP PO SCH (20:45)
[2024-05-08 06:10] LABS: #Basophils 0.08 10x3/uL (0.0-0.2); %Basophils 0.8 % (0.0-1.0); %Eosinophils 1.5 % (0.0-10.0); %Lymphocytes 15.6 % (21.0-51.0); %Monocytes 14.4 % (0.0-10.0); %Neutrophils 67.5 % (42.0-75.0); Hemoglobin 14.4 g/dL (12.0-16.0); Mean Corpuscular HGB CONC 32.7 g/dL (32.0-36.0); Mean Corpuscular Hemoglobin 32.1 pg (27.0-31.0); Mean Corpuscular Volume 98.2 fL (78.0-98.0); Mean Platelet Volume 11.4 fL (7.4-10.4); Platelet Count 215 10x3/uL (130-400); RBC Distribution Width 13.3 % (11.5-14.5); Red Blood Cell (RBC) Count 4.48 mill/uL (4.20-5.40)
[2024-05-08 06:18] LABS: Anion Gap 13 mmol/L (10-20); BUN (Urea Nitrogen) 11 mg/dL (9.8-20.1); CK (CPK) 475 U/L (29-168); Calc. Creatinine Clearance 65 mL/min (70-130); Calcium 10.1 mg/dL (7.8-10.44); Carbon Dioxide 26 mmol/L (23-31); Chloride 104 mmol/L (98-107); Estimated GFR 88; Glucose 144 mg/dL (83-110); Potassium 3.9 mmol/L (3.5-5.1); Sodium 139 mmol/L (136-145)
[2024-05-08 09:01] LABS: INR-International Normal Ratio 2.3
[2024-05-08] MEDS: DULoxetine 60 MG CAP PO SCH (09:25)
[2024-05-08] MEDS: Lisinopril 10 MG TAB PO SCH (09:25)
[2024-05-08] MEDS: metFORMIN XR 500 MG ER.TAB PO SCH (09:26)
[2024-05-08] MEDS: Aspirin 81 mg Enteric Coated Tablet PO SCH (09:26)
[2024-05-08] MEDS ORDERED: Warfarin Sodium 3 MG TAB PO SCH ×2 (17:00)
[2024-05-08] MEDS: Warfarin Sodium 2 MG TAB PO SCH (18:00)
[2024-05-08] MEDS: Warfarin Sodium 2.5 MG TAB PO SCH (18:01)
[2024-05-08] MEDS: Atorvastatin Calcium 40 MG TAB PO SCH (20:22)
[2024-05-09 05:41] LABS: INR-International Normal Ratio 2.3; Prothrombin Time 25.2 sec (12.0-14.7)
[2024-05-09] MEDS ORDERED: Bupivacaine PF 0.5% 30 ML VIAL ONE (06:32)
[2024-05-09 15:28] VITALS: BP 104/68; TEMP 97.8
== END 2024-05-09 19:19 | DRG 552 ==
LOC: ERS 09:23 → SURG A 15:32
PROVIDERS: ADMIT Surgery; ATTEND Surgery
DX: S12.200A Unspecified displaced fracture of third cervical vertebra, initial encounter for closed fracture (principal); E87.1 Hypo-osmolality and hyponatremia; E11.9 Type 2 diabetes mellitus without complications; F03.90 Unspecified dementia, unspecified severity, without behavioral disturbance, psychotic disturbance, mood disturbance, and anxiety; E78.5 Hyperlipidemia, unspecified; I48.0 Paroxysmal atrial fibrillation; G89.29 Other chronic pain; M54.9 Dorsalgia, unspecified; Z90.49 Acquired absence of other specified parts of digestive tract; Z98.890 Other specified postprocedural states; Z95.2 Presence of prosthetic heart valve; Z91.040 Latex allergy status; Z91.018 Allergy to other foods; Z88.5 Allergy status to narcotic agent; Z88.1 Allergy status to other antibiotic agents; Z79.82 Long term (current) use of aspirin; Z79.01 Long term (current) use of anticoagulants; Z79.899 Other long term (current) drug therapy
CPT/HCPCS: 36415; 36416; 51701; 70450; 71045; 72125; 72128; 72131; 72170; 80048; 80053; 81001; 82550; 83735; 84100; 84484; 85025; 85610; 85730; 93005; 93010; 96361; 96374; 96375; G0390; J0665; J1815; J2270; J2405; J7120

== ENCOUNTER 2024-10-23 11:42 | Inpatient (IN) | payer MEDICARE ==
[2024-10-23 12:27] LABS: #Basophils 0.07 10x3/uL (0.0-0.2); %Basophils 0.8 % (0.0-1.0); %Eosinophils 0.6 % (0.0-10.0); %Lymphocytes 22.6 % (21.0-51.0); %Monocytes 10.2 % (0.0-10.0); %Neutrophils 65.7 % (42.0-75.0); Hematocrit 42.1 % (36.0-47.0); Hemoglobin 13.2 g/dL (12.0-16.0); Mean Corpuscular HGB CONC 31.4 g/dL (32.0-36.0); Mean Corpuscular Hemoglobin 31.2 pg (27.0-31.0); Mean Corpuscular Volume 99.5 fL (78.0-98.0); Platelet Count 296 10x3/uL (130-400); RBC Distribution Width 14.9 % (11.5-14.5); Red Blood Cell (RBC) Count 4.23 mill/uL (4.20-5.40)
[2024-10-23 12:50] LABS: Anisocytosis SLIGHT = 6-15 cells HPF (0-5); Burr Cells MODERATE= 6-15 cells HPF (0-1); Platelet Adequacy Comment Platelets Normal; Poikilocytosis SLIGHT = 6-15 cells HPF (0-5)
[2024-10-23 13:00] LABS: Albumin 3.8 g/dL (3.4-4.8); Chloride 103 mmol/L (98-107); Potassium 4.9 mmol/L (3.5-5.1); Sodium 134 mmol/L (136-145)
[2024-10-23 13:01] LABS: Glucose 107 mg/dL (83-110)
[2024-10-23 13:02] LABS: Globulin 4.7 g/dL (2.4-3.5); Protein, Total 8.5 g/dL (5.8-8.1)
[2024-10-23 13:03] LABS: Anion Gap 16 mmol/L (10-20); Carbon Dioxide 20 mmol/L (23-31)
[2024-10-23 13:04] LABS: Alkaline Phosphatase 55 U/L (40-110); Bilirubin, Total 0.9 mg/dL (0.2-1.2)
[2024-10-23 13:05] LABS: BUN (Urea Nitrogen) 16 mg/dL (9.8-20.1)
[2024-10-23 13:06] LABS: Acetaminophen Less than 10 mcg/mL (Less than 10); Alcohol Less than 10.0 mg/dL (Less than 10); Salicylate Less than 8.0 mg/dL (Less than 8.0)
[2024-10-23 13:07] LABS: ALT (SGPT) 8 U/L (8-55)
[2024-10-23 13:09] LABS: AST (SGOT) 22 U/L (5-34)
[2024-10-23 13:39] LABS: Calc. Creatinine Clearance 0 mL/min (70-130); Estimated GFR 90
[2024-10-23] MEDS ORDERED: Iopamidol-370 76% 500 ML MDV (1 ML CHARGE) ONE (14:15)
[2024-10-23 14:29] LABS: Bacteria/HPF None Seen HPF (None Seen); Bilirubin Negative (Negative); Blood, Urine Negative (Negative); CAUTI Indications for Culture Dysuria,urgency,freq; Clarity Clear (Clear); Glucose, Urine (Dipstick) Normal (Negative); Ketone, Urine Negative (Negative); Leukocyte Negative Leu/uL (Negative); Nitrite Negative (Negative); Protein, Urine (Dipstick) Negative (Neg-Trace); RBC/HPF 0-3 HPF (0-3); Squamous Epithelial 0-3 HPF (0-3); Urobilinogen Normal mg/dL (Less than 2); WBC/HPF None Seen HPF (0-3)
[2024-10-23 14:33] LABS: Urine Culture Reflex No No
[2024-10-23 14:35] LABS: Amphetamine Not Detected (NotDetected); Barbiturates Screen Not Detected (NotDetected); Benzodiazepine Screen Not Detected (NotDetected); Cocaine Metabolite Screen Not Detected (NotDetected); Methadone Not Detected (NotDetected); Methamphetamine Not Detected (NotDetected); Opiate Screen Not Detected (NotDetected); Oxycodone Screen Not Detected (NotDetected); Phencyclidine (PCP) Not Detected (NotDetected); THC/Cannabinoid Screen Not Detected (NotDetected); Tricyclic Screen Not Detected (NotDetected)
[2024-10-23 14:53] LABS: Troponin I 0.015 ng/mL (< 0.028)
[2024-10-23 15:06] LABS: Prothrombin Time Greater than 150.0 sec (12.0-14.7)
[2024-10-23 15:07] LABS: PTT Greater than 250.0 sec (22.9-36.1)
[2024-10-23] MEDS ORDERED: hydrALAZINE 20 MG/ML VIAL ONE (15:37)
[2024-10-23] MEDS ORDERED: Aspirin 300 MG Suppository ONE (15:44)
[2024-10-23] MEDS ORDERED: Dextrose 5% in Water 1,000 ML IV PRN (16:49)
[2024-10-23] MEDS ORDERED: Glucagon 1 MG/ML KIT IM PRN (16:49)
[2024-10-23] MEDS ORDERED: Dextrose 50% Abboject 50 ML SYRINGE SLOW IVP PRN (16:49)
[2024-10-23] MEDS ORDERED: Insulin Lispro 100 UNIT/ML 10 ML VIAL SC PRN (16:52)
[2024-10-23 17:23] LABS: INR-International Normal Ratio 1.3; Prothrombin Time 16.5 sec (12.0-14.7)
[2024-10-23 17:54] LABS: Hemoglobin A1c 5.7 % (4.0-6.0)
[2024-10-23 17:57] LABS: Cardiac Risk 3.3 (Less than 4.5)
[2024-10-23 18:33] LABS: Troponin I 0.016 ng/mL (< 0.028)
[2024-10-23] MEDS ORDERED: niCARdipine 25 MG/10 ML SDV ONE (18:56)
[2024-10-23 19:34] LABS: Actual Bicarbonate (HCO3v) 25.8 mEq/L (22-28); Base Excess 1.6 mEq/L (-2.0 to +3.0); Calcium, Ionized (venous) 1.13 mmol/L (1.16-1.32); Chloride (VBG) 99 mmol/L (98-106); Hematocrit-VBG 40 % (36.0-47.0); Hemoglobin (Hb) 13.5 g/dL (11.7-16.1); Potassium (VBG) 4.32 mmol/L (3.70-5.30); Sodium 137 mmol/L (133-146); pH (venous) 7.435 (7.32-7.43)
[2024-10-23] MEDS: Ondansetron PF 4 MG/2 ML Vial IVP PRN (21:10)
[2024-10-23] MEDS: niCARdipine 25 MG in Sodium Chloride 0.9% 250 ML 250 ML IVPB SCH (21:41)
[2024-10-23] MEDS: Ondansetron PF 4 MG/2 ML Vial ONE (21:41)
[2024-10-23] MEDS: hydrALAZINE 20 MG/ML VIAL SLOW IVP PRN (23:34)
[2024-10-24] MEDS: Sodium Chloride 0.9% 1,000 ML IV SCH (00:29)
[2024-10-24 02:39] LABS: Hematocrit 37.1 % (36.0-47.0); Hemoglobin 11.9 g/dL (12.0-16.0); Mean Corpuscular HGB CONC 32.1 g/dL (32.0-36.0); Mean Corpuscular Hemoglobin 30.8 pg (27.0-31.0); Mean Corpuscular Volume 96.1 fL (78.0-98.0); Mean Platelet Volume 11.2 fL (7.4-10.4); Platelet Count 331 10x3/uL (130-400); RBC Distribution Width 14.6 % (11.5-14.5); Red Blood Cell (RBC) Count 3.86 mill/uL (4.20-5.40)
[2024-10-24 02:47] LABS: ALT (SGPT) 8 U/L (8-55); AST (SGOT) 14 U/L (5-34); Albumin 3.4 g/dL (3.4-4.8); Alkaline Phosphatase 51 U/L (40-110); Anion Gap 13 mmol/L (10-20); BUN (Urea Nitrogen) 16 mg/dL (9.8-20.1); Bilirubin, Total 0.9 mg/dL (0.2-1.2); Calc. Creatinine Clearance 66 mL/min (70-130); Calcium 9.5 mg/dL (7.8-10.44); Carbon Dioxide 24 mmol/L (23-31); Chloride 102 mmol/L (98-107); Estimated GFR 89; Globulin 3.9 g/dL (2.4-3.5); Glucose 154 mg/dL (83-110); Potassium 4.3 mmol/L (3.5-5.1); Protein, Total 7.3 g/dL (5.8-8.1); Sodium 135 mmol/L (136-145)
[2024-10-24 03:18] LABS: Anisocytosis SLIGHT = 6-15 cells HPF (0-5); Band 5 % (5-11); Large Platelets 5.8 % (0-5); Lymphocytes 3 % (21-51); Monocytes 2 % (0-10); Neutrophil 85 % (42-75); Platelet Adequacy Comment Platelets Normal; Polychromasia SLIGHT = 2-3 cells HPF (0-2); Reactive Lymphocytes 5 % (0-10); Smudge Cells 1.9 %
[2024-10-24] MEDS: Promethazine HCl 12.5 MG in Sodium Chloride 0.9% 50 ML IVPB PRN (05:28)
[2024-10-24] MEDS: Amlodipine 5 MG TAB PO SCH (06:12)
[2024-10-24] MEDS ORDERED: Enoxaparin 40 MG (0.4 mL) SYRINGE SC SCH ×2 (09:00)
[2024-10-24 09:29] LABS: INR-International Normal Ratio 1.3
[2024-10-24 09:30] LABS: PTT 36.7 sec (22.9-36.1)
[2024-10-24] MEDS: Famotidine/PF 20 mg/2ml Vial SLOW IVP SCH ×2 (09:48→23:41)
[2024-10-24] MEDS: FLU (Fluad Triv) TS24-25 (65UP)/MF59C/PF 45 MCG/0.5 ML Syringe IM ONE (09:48)
[2024-10-24] MEDS: hydrALAZINE 20 MG/ML VIAL SLOW IVP PRN (13:25)
[2024-10-24] MEDS: Labetalol HCl 100 MG/20 ML VIAL SLOW IVP PRN (14:00)
[2024-10-24] MEDS: Enoxaparin 60 MG (0.6 mL) SYRINGE SC SCH ×2 (15:10→23:41)
[2024-10-24] MEDS: Lisinopril 10 MG TAB PER TUBE SCH (17:10)
[2024-10-24] MEDS: Metoprolol Tartrate 50 MG TAB PER TUBE SCH (17:10)
[2024-10-24] MEDS: Lisinopril 10 MG TAB PO SCH (18:19)
[2024-10-24] MEDS: Insulin Lispro 100 UNIT/ML 10 ML VIAL SC PRN (18:37)
[2024-10-25 02:34] LABS: Influenza A by NAA Not Detected (NotDetected); Influenza B by NAA Not Detected (NotDetected); SARS-CoV-2 NAA Rapid Test Not Detected (NotDetected)
[2024-10-25 03:34] LABS: #Basophils 0.04 10x3/uL (0.0-0.2); #Eosinophils Less than 0.03 10x3/uL (0.0-0.7); %Basophils 0.4 % (0.0-1.0); %Lymphocytes 11.2 % (21.0-51.0); %Monocytes 11.2 % (0.0-10.0); %Neutrophils 76.9 % (42.0-75.0); Hematocrit 33.4 % (36.0-47.0); Hemoglobin 10.9 g/dL (12.0-16.0); Mean Corpuscular HGB CONC 32.6 g/dL (32.0-36.0); Mean Corpuscular Hemoglobin 31.5 pg (27.0-31.0); Mean Corpuscular Volume 96.5 fL (78.0-98.0); Mean Platelet Volume 11.9 fL (7.4-10.4); Platelet Count 298 10x3/uL (130-400); RBC Distribution Width 14.9 % (11.5-14.5); Red Blood Cell (RBC) Count 3.46 mill/uL (4.20-5.40)
[2024-10-25 03:54] LABS: ALT (SGPT) 6 U/L (8-55); AST (SGOT) 12 U/L (5-34); Albumin 3.2 g/dL (3.4-4.8); Alkaline Phosphatase 51 U/L (40-110); Anion Gap 14 mmol/L (10-20); BUN (Urea Nitrogen) 18 mg/dL (9.8-20.1); Bilirubin, Total 1.3 mg/dL (0.2-1.2); Calc. Creatinine Clearance 89 mL/min (70-130); Calcium 8.7 mg/dL (7.8-10.44); Carbon Dioxide 21 mmol/L (23-31); Chloride 104 mmol/L (98-107); Estimated GFR 96; Globulin 3.7 g/dL (2.4-3.5); Glucose 159 mg/dL (83-110); Protein, Total 6.9 g/dL (5.8-8.1); Sodium 136 mmol/L (136-145)
[2024-10-25] MEDS: Potassium Chloride 20 MEQ in Premix 1 BAG IVPB SCH (04:51)
[2024-10-25] MEDS: Metoprolol Tartrate 50 MG TAB PER TUBE SCH (10:29)
[2024-10-25] MEDS: Lisinopril 10 MG TAB PO SCH (10:29)
[2024-10-25] MEDS: Potassium Bicarbonate/Cit Ac 20 MEQ TAB PER TUBE SCH (10:29)
[2024-10-25] MEDS: Enoxaparin 60 MG (0.6 mL) SYRINGE SC SCH (10:29)
[2024-10-25 13:04] VITALS: BMI 22.0
[2024-10-25 14:13] VITALS: BP 169/86
[2024-10-25 15:50] LABS: Bacteria/HPF None Seen HPF (None Seen); Bilirubin Negative (Negative); Blood, Urine 2+ (Negative); CAUTI Indications for Culture Alt mental st,lethar; Clarity Clear (Clear); Glucose, Urine (Dipstick) 50 mg/dL (Negative); Ketone, Urine 20 mg/dL (Negative); Leukocyte Negative Leu/uL (Negative); Nitrite Negative (Negative); Protein, Urine (Dipstick) 100 mg/dL (Neg-Trace); Specific Gravity, Urine 1.024 (1.002-1.036); Squamous Epithelial None Seen HPF (0-3); WBC/HPF 0-3 HPF (0-3); Yeast-Budding Rare HPF (None Seen)
[2024-10-25 15:53] LABS: Urine Culture Reflex No No
[2024-10-25] MEDS: Amlodipine 5 MG TAB PO SCH (17:16)
[2024-10-25 19:28] LABS: Magnesium 1.5 mg/dL (1.6-2.6)
[2024-10-25] MEDS: Atorvastatin Calcium 20 MG TAB PER TUBE SCH (20:14)
[2024-10-26 04:56] LABS: #Basophils 0.04 10x3/uL (0.0-0.2); #Eosinophils Less than 0.03 10x3/uL (0.0-0.7); %Basophils 0.3 % (0.0-1.0); %Eosinophils 0.1 % (0.0-10.0); %Lymphocytes 7.4 % (21.0-51.0); %Monocytes 11.8 % (0.0-10.0); %Neutrophils 80.1 % (42.0-75.0); Hematocrit 34.8 % (36.0-47.0); Hemoglobin 11.5 g/dL (12.0-16.0); Mean Corpuscular Hemoglobin 31.3 pg (27.0-31.0); Mean Corpuscular Volume 94.8 fL (78.0-98.0); Mean Platelet Volume 12.2 fL (7.4-10.4); Platelet Count 275 10x3/uL (130-400); RBC Distribution Width 15.1 % (11.5-14.5); Red Blood Cell (RBC) Count 3.67 mill/uL (4.20-5.40)
[2024-10-26 05:09] LABS: ALT (SGPT) 6 U/L (8-55); AST (SGOT) 11 U/L (5-34); Alkaline Phosphatase 51 U/L (40-110); Anion Gap 13 mmol/L (10-20); BUN (Urea Nitrogen) 13 mg/dL (9.8-20.1); Bilirubin, Total 1.2 mg/dL (0.2-1.2); Calc. Creatinine Clearance 90 mL/min (70-130); Calcium 8.6 mg/dL (7.8-10.44); Carbon Dioxide 22 mmol/L (23-31); Chloride 106 mmol/L (98-107); Estimated GFR 95; Globulin 3.7 g/dL (2.4-3.5); Glucose 237 mg/dL (83-110); Magnesium 1.5 mg/dL (1.6-2.6); Potassium 3.9 mmol/L (3.5-5.1); Protein, Total 6.7 g/dL (5.8-8.1); Sodium 137 mmol/L (136-145)
[2024-10-26] MEDS ORDERED: Non-Formulary Item 1 EACH (Duloxetine Hcl [Duloxetine Hcl] 40 MG Capsule.Dr) PER TUBE SCH (09:00)
[2024-10-26] MEDS ORDERED: Aspirin 81 mg Enteric Coated Tablet PO SCH (09:00)
[2024-10-26] MEDS: Lisinopril 20 MG TAB PO SCH (10:57)
[2024-10-26] MEDS: Aspirin Chewable 81 MG TAB PER TUBE SCH (10:58)
[2024-10-26 17:36] VITALS: TEMP 97.5
[2024-10-26] MEDS: Haloperidol Lactate 5 MG/ML VIAL IM SCH (23:34)
[2024-10-27 04:01] LABS: Hematocrit 35.5 % (36.0-47.0); Mean Corpuscular HGB CONC 33.8 g/dL (32.0-36.0); Mean Corpuscular Hemoglobin 31.6 pg (27.0-31.0); Mean Corpuscular Volume 93.4 fL (78.0-98.0); Mean Platelet Volume 11.9 fL (7.4-10.4); Platelet Count 269 10x3/uL (130-400)
[2024-10-27 04:27] LABS: Large Platelets 16.5 % (0-5); Lymphocytes 11 % (21-51); Monocytes 12 % (0-10); Neutrophil 77 % (42-75); Platelet Adequacy Comment Platelets Normal; Polychromasia SLIGHT = 2-3 cells HPF (0-2); Smudge Cells 5.8 %
[2024-10-27 04:43] LABS: ALT (SGPT) 7 U/L (8-55); AST (SGOT) 10 U/L (5-34); Albumin 2.8 g/dL (3.4-4.8); Alkaline Phosphatase 53 U/L (40-110); Anion Gap 12 mmol/L (10-20); BUN (Urea Nitrogen) 18 mg/dL (9.8-20.1); Calc. Creatinine Clearance 84 mL/min (70-130); Calcium 8.4 mg/dL (7.8-10.44); Carbon Dioxide 24 mmol/L (23-31); Chloride 104 mmol/L (98-107); Estimated GFR 93; Globulin 3.8 g/dL (2.4-3.5); Glucose 275 mg/dL (83-110); Magnesium 1.7 mg/dL (1.6-2.6); Potassium 3.7 mmol/L (3.5-5.1); Protein, Total 6.6 g/dL (5.8-8.1); Sodium 136 mmol/L (136-145)
[2024-10-27 05:16] VITALS: BMI 22.2
== END 2024-10-27 16:06 | DRG 77 ==
LOC: ERS 11:42 → CCU 15:57 → IMCU/EMU 10-25 01:04
PROVIDERS: ADMIT Internal Medicine; ATTEND Internal Medicine
DX: I67.4 Hypertensive encephalopathy (principal); G93.41 Metabolic encephalopathy; I67.83 Posterior reversible encephalopathy syndrome; E87.1 Hypo-osmolality and hyponatremia; I16.1 Hypertensive emergency; E11.9 Type 2 diabetes mellitus without complications; I10 Essential (primary) hypertension; E78.5 Hyperlipidemia, unspecified; F03.90 Unspecified dementia, unspecified severity, without behavioral disturbance, psychotic disturbance, mood disturbance, and anxiety; Z91.040 Latex allergy status; Z88.8 Allergy status to other drugs, medicaments and biological substances; Z91.018 Allergy to other foods; Z79.82 Long term (current) use of aspirin; Z79.84 Long term (current) use of oral hypoglycemic drugs; Z79.01 Long term (current) use of anticoagulants; Z79.899 Other long term (current) drug therapy; I48.91 Unspecified atrial fibrillation; E87.6 Hypokalemia; Z51.5 Encounter for palliative care; Z66 Do not resuscitate
CPT/HCPCS: 0042T; 36415; 36416; 70450; 70496; 70498; 80053; 80061; 80306; 80307; 81001; 82805; 83036; 83735; 84145; 84443; 84484; 85025; 85610; 85730; 87040; 93005; 94760; 96374; J0360; J1630; J1650; J1815; J2405; J2550; J3480; J3490; J7030; J7050; Q9967